=== PATIENT | male | born 1955 | race Caucasian/White ===

== ENCOUNTER 2017-06-15 21:53 | Inpatient (IN) | payer MEDICARE ==
[~2017-06-15] VITALS: Ht 177.8 cm; Wt 92.6 kg
[~2017-06-15 21:53] MED LIST: ARTIFICIAL TEAR15 M1 OP; ATIVAN1 MG PO; ATIVAN2 MG PO; ATIVAN2 MG/ML IM; AZITHROMYCIN250 MG PO; CLARITIN10 MG PO; COGENTIN0.5 MG PO; DEPAKOTE125 MG PO; DEPLIN-ALGAL O1 EAC1 PO; DOCUSATE100 MG PO; DUONEB 3 MG/3 ML3 M1 INH; EXELON4.6 MG/24 TD; MOBIC15 MG PO; NEUDEXT PO; NUED1CAP PO; NUEDEXTA 20-10; PREDNISONE10 MG PO; PRILOSEC20 MG PO; SENNA-GEN8.6 MG PO; SEROQUEL100 MG PO; SEROQUEL50 MG PO; TEGRETOL200 MG PO; TYLENOL650 M1 PO; VITAMIN D32000 IU PO; XIFAXAN550 MG PO
[2017-06-15 21:57] VITALS: BP 119/82
[2017-06-15] MEDS ORDERED: TRAZODONE50 MG PO (22:10)
[2017-06-15] MEDS ORDERED: DEPAKOTE SPRIN125 MG PO ×2 (22:12→22:14)
[2017-06-15] MEDS ORDERED: BENZTROPINE ME0.5 MG PO (22:13)
[2017-06-15] MEDS ORDERED: NUED1CAP PO (22:15)
[2017-06-15] MEDS ORDERED: CARBAMAZEPINE200 M2 PO (22:15)
[2017-06-15] MEDS ORDERED: ARTIFICIAL TEA1 EACH OP (22:16)
[2017-06-15] MEDS ORDERED: ATIVAN0.5 MG PO (22:16)
[2017-06-15] MEDS ORDERED: LACTULOSE20 GM/30 M PO (22:17)
[2017-06-15] MEDS ORDERED: VITAMIN D-3 PO (22:18)
[2017-06-15] MEDS ORDERED: LORAZEPAM2 MG PO (22:18)
[2017-06-15] MEDS ORDERED: DEPLIN-ALGAL O1 EAC1 PO (22:19)
[2017-06-15] MEDS ORDERED: XIFAXAN550 MG PO (22:19)
[2017-06-15] MEDS ORDERED: MOBIC15 MG PO (22:20)
[2017-06-15] MEDS ORDERED: TYLENOL325 M1 PO (22:20)
[2017-06-15] MEDS ORDERED: CLARITIN10 MG PO (22:21)
[2017-06-15] MEDS ORDERED: DOCU-LIQUI150 MG/15 PO (22:21)
[2017-06-15 22:45] LABS: BASO % 0.4 % (0.0-1.0); EOS # 0.1 10*3/uL (0.0-0.4); EOS % 0.9 % (1.0-4.0); HEMATOCRIT 39.8 % (42.0-52.0); HEMOGLOBIN 13.9 g/dl (14.0-18.0); IG # 0.1 10*3/uL (0.0-0.1); LYMPH # 1.5 10*3/uL (1.3-4.4); LYMPH % 27.5 % (27.0-41.0); MEAN CELL VOLUME 89.6 fl (80.0-94.0); MEAN CORPUSCULAR HGB 31.3 pg (27.0-31.0); MEAN CORPUSCULAR HGB CONC 34.9 g/dl (33.0-37.0); MEAN PLATELET VOLUME 9.6 fl (9.6-12.3); MONO # 0.5 10*3/uL (0.1-1.0); MONO % 9.3 % (3.0-9.0); NEUT # 3.3 10*3/uL (2.3-7.9); NEUT % 60.6 % (47.0-73.0); PLATELET COUNT AUTOMATED 163 10*3/uL (130-400); RED BLOOD COUNT 4.44 10*6/uL (4.50-5.90); RED CELL DISTRI WIDTH 12.4 % (0-14.5); WHITE BLOOD COUNT 5.4 10*3/uL (4.8-10.8)
[2017-06-15 22:58] LABS: PROTHROMBIN TIME 10.8 SECONDS (9.0-12.4)
[2017-06-15 23:02] LABS: ALBUMIN 3.2 gm/dl (3.1-4.5); ALKALINE PHOSPHATASE 43 U/L (45-117); BILIRUBIN, TOTAL 0.2 mg/dl (0.2-1.0); BUN 13 mg/dl (7-24); CARBON DIOXIDE 24 mmol/L (21-32); CHLORIDE 98 mmol/L (98-107); EST GLOM FILT AFRICAN AMERICAN > 60 ml/min; GLUCOSE 140 mg/dL (65-99); MAGNESIUM 1.9 mg/dL (1.5-2.1); POTASSIUM 4.1 mmol/L (3.5-5.1); SGOT/AST 27 IU/L (3-35); SGPT/ALT 42 U/L (12-78); SODIUM 133 mmol/L (136-145); TOTAL PROTEIN 6.6 gm/dL (6.4-8.2)
[2017-06-15 23:11] LABS: TROPONIN I < 0.015 ng/ml (<0.045)
[2017-06-16 00:43] LABS: LA>2 REFLEX 2 HR DRAW NOW
[2017-06-16 03:30] VITALS: BP 100/56
[2017-06-16 06:36] LABS: BASO % 0.3 % (0.0-1.0); EOS % 0.6 % (1.0-4.0); HEMATOCRIT 36.7 % (42.0-52.0); HEMOGLOBIN 12.6 g/dl (14.0-18.0); IG # 0.1 10*3/uL (0.0-0.1); LYMPH # 1.3 10*3/uL (1.3-4.4); LYMPH % 19.7 % (27.0-41.0); MEAN CELL VOLUME 92.2 fl (80.0-94.0); MEAN CORPUSCULAR HGB 31.7 pg (27.0-31.0); MEAN CORPUSCULAR HGB CONC 34.3 g/dl (33.0-37.0); MEAN PLATELET VOLUME 9.9 fl (9.6-12.3); MONO # 0.6 10*3/uL (0.1-1.0); MONO % 9.5 % (3.0-9.0); NEUT # 4.7 10*3/uL (2.3-7.9); PLATELET COUNT AUTOMATED 133 10*3/uL (130-400); RED BLOOD COUNT 3.98 10*6/uL (4.50-5.90); RED CELL DISTRI WIDTH 12.5 % (0-14.5); WHITE BLOOD COUNT 6.8 10*3/uL (4.8-10.8)
[2017-06-16 06:55] LABS: FOLIC ACID > 24.00 ng/mL (>5.38)
[2017-06-16 07:02] LABS: BUN 9 mg/dl (7-24); CARBON DIOXIDE 25 mmol/L (21-32); CHLORIDE 103 mmol/L (98-107); EST GLOM FILT AFRICAN AMERICAN > 60 ml/min; FREE T4 0.77 ng/dl (0.76-1.46); GLUCOSE 92 mg/dL (65-99); PHOSPHOROUS 3.2 mg/dL (2.5-4.9); POTASSIUM 3.9 mmol/L (3.5-5.1); SODIUM 136 mmol/L (136-145)
[2017-06-16 08:00] VITALS: BP 150/87
[2017-06-16 10:18] LABS: BILIRUBIN NEGATIVE (NEGATIVE); BLOOD NEGATIVE (NEGATIVE); CLARITY SL CLOUDY (CLEAR); COLOR YELLOW (YELLOW); GLUCOSE NEGATIVE (NEGATIVE); KETONE NEGATIVE (NEGATIVE); LEUKO ESTERASE 3+ (NEGATIVE); NITRITE POSITIVE (NEGATIVE); PH 6.5 (5.0-9.0); PROTEIN NEGATIVE (NEGATIVE); SPECIFIC GRAVITY <= 1.005 (1.005-1.030)
[2017-06-16 10:35] LABS: WBC TNTC wbc/hpf (0-5)
[2017-06-16 10:36] LABS: BACTERIA 1+; CALCIUM OXALATE CRYSTALS TRACE; URINE REFLEX COMMENT YES (NO)
[2017-06-16 12:00] VITALS: BP 108/74
[2017-06-16 16:00] VITALS: BP 127/88
[2017-06-16 20:00] VITALS: BP 124/69
[2017-06-17] VITALS: BP 128/88
[2017-06-17 05:54] LABS: BASO % 0.4 % (0.0-1.0); EOS % 0.8 % (1.0-4.0); HEMATOCRIT 35.5 % (42.0-52.0); HEMOGLOBIN 12.1 g/dl (14.0-18.0); IG # 0.1 10*3/uL (0.0-0.1); LYMPH # 1.6 10*3/uL (1.3-4.4); LYMPH % 31.3 % (27.0-41.0); MEAN CELL VOLUME 93.2 fl (80.0-94.0); MEAN CORPUSCULAR HGB 31.8 pg (27.0-31.0); MEAN CORPUSCULAR HGB CONC 34.1 g/dl (33.0-37.0); MEAN PLATELET VOLUME 9.9 fl (9.6-12.3); MONO # 0.6 10*3/uL (0.1-1.0); MONO % 11.8 % (3.0-9.0); NEUT # 2.7 10*3/uL (2.3-7.9); NEUT % 54.5 % (47.0-73.0); PLATELET COUNT AUTOMATED 151 10*3/uL (130-400); RED BLOOD COUNT 3.81 10*6/uL (4.50-5.90); RED CELL DISTRI WIDTH 12.7 % (0-14.5)
[2017-06-17 05:55] LABS: BUN 5 mg/dl (7-24); CARBON DIOXIDE 25 mmol/L (21-32); CHLORIDE 107 mmol/L (98-107); EST GLOM FILT AFRICAN AMERICAN > 60 ml/min; GLUCOSE 96 mg/dL (65-99); POTASSIUM 3.7 mmol/L (3.5-5.1); SODIUM 140 mmol/L (136-145)
[2017-06-17 08:00] VITALS: BP 146/74
[2017-06-17] MEDS ORDERED: LORAZEPAM2 MG PO (10:45)
[2017-06-17] MEDS ORDERED: ATIVAN0.5 MG PO (10:45)
[2017-06-17] MEDS ORDERED: DUONEB 3 MG/3 ML3 M1 NEB (10:45)
[2017-06-17 12:00] VITALS: BP 140/77
== END 2017-06-17 16:02 | DRG 193 ==
LOC: ED 21:53 → 4E 06-16 02:10 → EDHOLD 06-16 02:10 → 4E 06-16 02:13
PROVIDERS: Emergency Medicine Emergency Medical Services; Family Medicine; Internal Medicine
DX: J18.9 Pneumonia, unspecified organism (principal); G93.41 Metabolic encephalopathy; G91.9 Hydrocephalus, unspecified; E87.2 Acidosis; J45.901 Unspecified asthma with (acute) exacerbation; F02.81 Dementia in other diseases classified elsewhere, unspecified severity, with behavioral disturbance; G82.20 Paraplegia, unspecified; E87.1 Hypo-osmolality and hyponatremia; N39.0 Urinary tract infection, site not specified; R47.01 Aphasia; D64.9 Anemia, unspecified; R73.9 Hyperglycemia, unspecified; F41.9 Anxiety disorder, unspecified; F32.9 Major depressive disorder, single episode, unspecified; G20 Parkinson's disease; R56.9 Unspecified convulsions; Z79.1 Long term (current) use of non-steroidal anti-inflammatories (NSAID); S06.9X9S Unspecified intracranial injury with loss of consciousness of unspecified duration, sequela; Z79.899 Other long term (current) drug therapy; T17.298A Other foreign object in pharynx causing other injury, initial encounter; X58.XXXA Exposure to other specified factors, initial encounter; Y93.89 Activity, other specified; Y92.89 Other specified places as the place of occurrence of the external cause; Y99.8 Other external cause status

== ENCOUNTER 2018-02-19 16:17 | Emergency (ER) | payer MEDICARE ==
[~2018-02-19] VITALS: Wt 81.6 kg
[~2018-02-19 16:17] MED LIST changes: +ARTIFICIAL TEA1 EACH OP; +ATIVAN0.5 MG PO; +BENZTROPINE ME0.5 MG PO; +CARBAMAZEPINE200 M2 PO; +DEPAKOTE SPRIN125 MG PO; +DOCU-LIQUI150 MG/15 PO; +DUONEB 3 MG/3 ML3 M1 NEB; +LACTULOSE20 GM/30 M PO; +LORAZEPAM2 MG PO; +TRAZODONE50 MG PO; +TYLENOL325 M1 PO; +VITAMIN D-3 PO
[2018-02-19 17:32] LABS: BASO % 0.2 % (0.0-1.0); EOS # 0.1 10*3/uL (0.0-0.4); HEMATOCRIT 40.8 % (42.0-52.0); HEMOGLOBIN 13.6 g/dl (14.0-18.0); LYMPH # 1.9 10*3/uL (1.3-4.4); LYMPH % 39.2 % (27.0-41.0); MEAN CELL VOLUME 96.2 fl (80.0-94.0); MEAN CORPUSCULAR HGB 32.1 pg (27.0-31.0); MEAN CORPUSCULAR HGB CONC 33.3 g/dl (33.0-37.0); MEAN PLATELET VOLUME 10.8 fl (9.6-12.3); MONO # 0.4 10*3/uL (0.1-1.0); MONO % 8.5 % (3.0-9.0); NEUT # 2.4 10*3/uL (2.3-7.9); NEUT % 48.9 % (47.0-73.0); PLATELET COUNT AUTOMATED 120 10*3/uL (130-400); RED BLOOD COUNT 4.24 10*6/uL (4.50-5.90); RED CELL DISTRI WIDTH 12.8 % (0-14.5); WHITE BLOOD COUNT 4.9 10*3/uL (4.8-10.8)
[2018-02-19 17:48] LABS: ALBUMIN 2.8 gm/dl (3.1-4.5); ALKALINE PHOSPHATASE 38 U/L (45-117); BUN 19 mg/dl (7-24); CHLORIDE 103 mmol/L (98-107); POTASSIUM 4.1 mmol/L (3.5-5.1); SGOT/AST 21 IU/L (3-35); SGPT/ALT 34 U/L (12-78); SODIUM 138 mmol/L (136-145); TOTAL PROTEIN 5.7 gm/dL (6.4-8.2)
[2018-02-19 17:59] LABS: BILIRUBIN 1+ (NEGATIVE); BLOOD NEGATIVE (NEGATIVE); CLARITY CLOUDY (CLEAR); COLOR BROWN (YELLOW); GLUCOSE NEGATIVE (NEGATIVE); KETONE 1+ (NEGATIVE); LEUKO ESTERASE 2+ (NEGATIVE); NITRITE POSITIVE (NEGATIVE); SPECIFIC GRAVITY 1.015 (1.005-1.030)
[2018-02-19 18:06] LABS: BACTERIA 2+; TRIP PHOS CRYSTALS 1+; WBC TNTC wbc/hpf (0-5)
== END 2018-02-19 18:03 | disposition home or self-care (01) ==
LOC: ED 16:17
PROVIDERS: Emergency Medicine
DX: Z00.00 Encounter for general adult medical examination without abnormal findings (principal); J45.909 Unspecified asthma, uncomplicated; Z98.890 Other specified postprocedural states; Z79.899 Other long term (current) drug therapy

== ENCOUNTER → 2018-03-08 | Outpatient (CLI) | payer MEDICARE ==
--- NOTE | ~2018-03-08 | SLPPN ---
[place], [place] DIE REPAIR PROGRESS NOTE NAME: CHRISTINE NÚÑEZ UNIT #: [id number] ROOM: DOCTOR: MERRY LLOYD MD,SHITAL Speech Language Pathology Treatment Note Page 1 1 of Patient Name: CHRISTINE NÚÑEZ Date: 03/08/2018 04:01 PM : 1955 SOC Date: 03/08/2018 [facility]: [facility] Provider #: [id number] Treating Clinician: LENO De La Torre-DIE REPAIR Referring Physician: SHITAL LLOYD Onset Date Description Code Primary Diagnosis: 03/08/2018 A0000 NO DIAGNOSIS SENT TO THE [facility] Time In: 01:30 PM Time Out: 02:30 PM DIE REPAIR Interventions and CPT Codes Consisted of: CPT Code Modifiers Minutes Units MOTION FLUOROSCOPY/SWALLOW 76858 60 1 Total Minutes: 60 Total Timed Minutes: 0 Total Untimed Minutes: 60 Total Units: 1 Total Timed Units: 0 Total Untimed Units: 1 03/08/2018 4:02:17 PM JUAN PABLO De La Torre Date/Time State License #: [id number] CM:ELLEN 1604 1604 [facility]Y [facility]
--- NOTE | ~2018-03-08 | SLPPOC ---
[place], [place] VENDOR RELATIONSHIP MANAGER PLAN OF CARE NAME: CHRISTINE NÚÑEZ UNIT #: [id number] ROOM: DOCTOR: SHITAL RODAS FACP, MD Speech Language Pathology Plan of Care Page 1 1 (Initial Evaluation) of Patient Name: CHRISTINE NÚÑEZ Date: 03/08/2018 04:00 PM : 1955 SOC Date: 03/08/2018 [facility]: [facility] Provider #: [id number] Treating Clinician: LENO De La Torre-VENDOR RELATIONSHIP MANAGER Referring Physician: SHITAL LLOYD Medicare #: [id number] Visits From SOC: Onset Date Description Code Primary Diagnosis: 03/08/2018 A0000 NO DIAGNOSIS SENT TO THE [facility] Subjective Comments: Initial evaluation created to initiate the electronic medical record. Please see [employer] for details. Initial Level Goals Functional Limitation Reporting Swallowing G8996 - Swallowing functional limitation, current status at therapy episode outset and at reporting intervals Current Status: CJ - At least 20 percent but less than 40 percent impaired, limited or restricted G8997 - Swallowing functional limitation, projected goal status, at therapy episode outset, at reporting intervals, and at discharge or to end reporting Goal Status: CJ - At least 20 percent but less than 40 percent impaired, limited or restricted G8998 - Swallowing functional limitation, discharge status, at discharge from therapy or to end reporting Discharge Status: CJ - At least 20 percent but less than 40 percent impaired, limited or restricted 03/08/2018 4:01:26 PM SHITAL LLOYD Date/Time JUAN PABLO De La Torre Date I certify the need for these services furnished under this plan of treatment while under my care. State License #: [id number] CM:SLPPO 1604 1604 IS THERAPY [facility]
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
--- NOTE | ~2018-03-08 | SLPIE ---
[place], [place] ER TECH INITIAL EVALUATION NAME: CHRISTINE NÚÑEZ UNIT #: [id number] ROOM: DOCTOR: SHITAL RODAS FACP, MD Speech Language Pathology Initial Evaluation Page 1 1 of Patient Name: CHRISTINE NÚÑEZ Date: 03/08/2018 04:00 PM : 1955 SOC Date: 03/08/2018 [facility]: [facility] Provider #: [id number] Treating Clinician: LENO De La Torre-ER TECH Referring Physician: SHITAL LLOYD Patient Information Address: [address] [place] [address] Physician: SHITAL LLOYD Physician #: City, [facility], Zip: [place], [place] [address] Occupation: Unknown # of Approved Visits: 0 Gender: Male [employer]: TAMIKO NÚÑEZ Medicare #: [id number] Rehabilitation Information / History Onset Date Code Description Primary Diagnosis: 03/08/2018 A0000 NO DIAGNOSIS SENT TO THE [facility] Subjective Comments: Initial evaluation created to initiate the electronic medical record. Please see [employer] for details. Rehabilitation Information / History Clinical Findings Functional Goals Functional Limitation Reporting Swallowing G8996 - Swallowing functional limitation, current status at therapy episode outset and at reporting intervals Current Status: CJ - At least 20 percent but less than 40 percent impaired, limited or restricted G8997 - Swallowing functional limitation, projected goal status, at therapy episode outset, at reporting intervals, and at discharge or to end reporting Goal Status: CJ - At least 20 percent but less than 40 percent impaired, limited or restricted G8998 - Swallowing functional limitation, discharge status, at discharge from therapy or to end reporting Discharge Status: CJ - At least 20 percent but less than 40 percent impaired, limited or restricted 03/08/2018 4:01:26 PM LENO De La Torre-ER TECH Date/Time [place], [place] ER TECH INITIAL EVALUATION NAME: CHRISTINE NÚÑEZ UNIT #: [id number] ROOM: DOCTOR: SHITAL RODAS FACP, MD [facility] License #: [id number] CM:MICHELLE 1604 1604 IS THERAPY [facility]
== END | disposition home or self-care (01) ==
LOC: RAD/SH 13:19
DX: R13.10 Dysphagia, unspecified (principal); K21.9 Gastro-esophageal reflux disease without esophagitis

== ENCOUNTER 2018-04-03 17:30 | Inpatient (IN) | payer MEDICARE ==
[~2018-04-03] VITALS: Ht 177.8 cm; Wt 84.5 kg
[~2018-04-03 17:30] MED LIST changes: -CARBAMAZEPINE200 M2 PO; -DOCU-LIQUI150 MG/15 PO; +DOCUSATE S100 MG/10 PO
[2018-04-03 17:35] VITALS: BP 109/78
[2018-04-03 18:59] LABS: BASO % 0.1 % (0.0-1.0); EOS % 0.2 % (1.0-4.0); HEMATOCRIT 43.6 % (42.0-52.0); HEMOGLOBIN 14.5 g/dl (14.0-18.0); LYMPH # 2.5 10*3/uL (1.3-4.4); MEAN CELL VOLUME 96.9 fl (80.0-94.0); MEAN CORPUSCULAR HGB 32.2 pg (27.0-31.0); MEAN CORPUSCULAR HGB CONC 33.3 g/dl (33.0-37.0); MEAN PLATELET VOLUME 12.2 fl (9.6-12.3); MONO # 1.2 10*3/uL (0.1-1.0); MONO % 7.1 % (3.0-9.0); NEUT # 13.7 10*3/uL (2.3-7.9); NEUT % 78.1 % (47.0-73.0); PLATELET COUNT AUTOMATED 76 10*3/uL (130-400); RED CELL DISTRI WIDTH 12.6 % (0-14.5); WHITE BLOOD COUNT 17.5 10*3/uL (4.8-10.8)
[2018-04-03 19:09] LABS: ACT PARTIAL THROMBO TIME 28.3 SECONDS (20.8-31.5); INTERNATIONAL NORM RATIO 1.1 (2.0-3.5)
[2018-04-03 19:18] LABS: ALBUMIN 2.4 gm/dl (3.1-4.5); ALKALINE PHOSPHATASE 30 U/L (45-117); BUN 25 mg/dl (7-24); CHLORIDE 112 mmol/L (98-107); CREATININE 0.57 mg/dL (0.70-1.30); LIPASE 90 U/L (73-393); POTASSIUM 3.5 mmol/L (3.5-5.1); SGOT/AST 21 IU/L (3-35); SGPT/ALT 31 U/L (12-78); SODIUM 146 mmol/L (136-145); TOTAL PROTEIN 5.8 gm/dL (6.4-8.2); TROPONIN I 0.019 ng/ml (<0.045)
[2018-04-03 20:32] LABS: BILIRUBIN NEGATIVE (NEGATIVE); BLOOD TRACE-INTACT (NEGATIVE); CLARITY SL CLOUDY (CLEAR); COLOR YELLOW (YELLOW); GLUCOSE NEGATIVE (NEGATIVE); KETONE TRACE (NEGATIVE); LEUKO ESTERASE TRACE (NEGATIVE); NITRITE NEGATIVE (NEGATIVE); SPECIFIC GRAVITY >= 1.030 (1.005-1.030); UROBILINOGEN 0.2 E.U./dl (0.2-1.0)
[2018-04-03 20:44] LABS: BACTERIA 1+; MUCOUS 2+
[2018-04-03 20:45] LABS: RBC 21-30 rbc/hpf (0-2); WBC 41-50 wbc/hpf (0-5)
[2018-04-03 21:00] VITALS: BP 111/80
[2018-04-03 21:25] VITALS: BP 109/78
[2018-04-03] MEDS ORDERED: DUONEB 3 MG/3 ML3 M1 INH ×2 (21:38→21:45)
[2018-04-03] MEDS ORDERED: DOXYCYCLINE50 M1 PO (21:40)
[2018-04-03] MEDS ORDERED: ATIVAN0.5 MG PO ×2 (21:41→21:42)
[2018-04-03] MEDS ORDERED: NUED1CAP PO (21:50)
[2018-04-03] MEDS ORDERED: VITAMIN D310000 UNI1 PO (22:11)
[2018-04-04] VITALS: BP 100/68
[2018-04-04 07:03] LABS: BASO % 0.1 % (0.0-1.0); EOS # 0.1 10*3/uL (0.0-0.4); EOS % 0.5 % (1.0-4.0); HEMATOCRIT 42.6 % (42.0-52.0); HEMOGLOBIN 13.8 g/dl (14.0-18.0); LYMPH # 1.9 10*3/uL (1.3-4.4); LYMPH % 12.9 % (27.0-41.0); MEAN CELL VOLUME 97.5 fl (80.0-94.0); MEAN CORPUSCULAR HGB 31.6 pg (27.0-31.0); MEAN CORPUSCULAR HGB CONC 32.4 g/dl (33.0-37.0); MEAN PLATELET VOLUME 12.1 fl (9.6-12.3); MONO # 1.1 10*3/uL (0.1-1.0); MONO % 7.3 % (3.0-9.0); NEUT # 11.5 10*3/uL (2.3-7.9); NEUT % 78.7 % (47.0-73.0); PLATELET COUNT AUTOMATED 70 10*3/uL (130-400); RED BLOOD COUNT 4.37 10*6/uL (4.50-5.90); RED CELL DISTRI WIDTH 12.5 % (0-14.5); WHITE BLOOD COUNT 14.6 10*3/uL (4.8-10.8)
[2018-04-04 07:11] LABS: ALBUMIN 2.6 gm/dl (3.1-4.5); BUN 26 mg/dl (7-24); CHLORIDE 110 mmol/L (98-107); POTASSIUM 3.7 mmol/L (3.5-5.1); SGPT/ALT 25 U/L (12-78); SODIUM 146 mmol/L (136-145)
[2018-04-04 07:20] LABS: ALKALINE PHOSPHATASE 33 U/L (45-117); CHOLESTEROL 135 mg/dL (<200); CREATININE 0.62 mg/dL (0.70-1.30); FREE T4 0.73 ng/dl (0.76-1.46); HDL CHOLESTEROL 32 mg/dl (40-60); LDL CHOLESTEROL 85 mg/dL (9-159); PHOSPHOROUS 2.5 mg/dL (2.5-4.9); SGOT/AST 22 IU/L (3-35); TOTAL PROTEIN 5.9 gm/dL (6.4-8.2); TRIGLYCERIDES 92 mg/dl (<150); VLDL CHOLESTEROL 18 mg/dL (6-40)
[2018-04-04 08:00] VITALS: BP 98/78
[2018-04-04 08:04] LABS: VITAMIN D, 25-HYDROXY 63.8 ng/mL (30-100)
[2018-04-04 12:00] VITALS: BP 107/80
[2018-04-04 16:00] VITALS: BP 99/73
[2018-04-04 20:00] VITALS: BP 105/32
[2018-04-05 00:26] VITALS: BP 102/65
[2018-04-05 07:39] LABS: BASO % 0.1 % (0.0-1.0); EOS # 0.2 10*3/uL (0.0-0.4); EOS % 2.7 % (1.0-4.0); HEMATOCRIT 39.7 % (42.0-52.0); HEMOGLOBIN 13.2 g/dl (14.0-18.0); LYMPH # 1.6 10*3/uL (1.3-4.4); LYMPH % 18.5 % (27.0-41.0); MEAN CELL VOLUME 95.7 fl (80.0-94.0); MEAN CORPUSCULAR HGB 31.8 pg (27.0-31.0); MEAN CORPUSCULAR HGB CONC 33.2 g/dl (33.0-37.0); MEAN PLATELET VOLUME 12.9 fl (9.6-12.3); MONO # 0.6 10*3/uL (0.1-1.0); MONO % 6.8 % (3.0-9.0); NEUT # 6.3 10*3/uL (2.3-7.9); NEUT % 70.7 % (47.0-73.0); PLATELET COUNT AUTOMATED 64 10*3/uL (130-400); RED BLOOD COUNT 4.15 10*6/uL (4.50-5.90); RED CELL DISTRI WIDTH 12.4 % (0-14.5); WHITE BLOOD COUNT 8.9 10*3/uL (4.8-10.8)
[2018-04-05 08:00] VITALS: BP 109/73
[2018-04-05 08:07] LABS: BUN 28 mg/dl (7-24); CHLORIDE 110 mmol/L (98-107); CREATININE 0.39 mg/dL (0.70-1.30)
[2018-04-05 08:10] LABS: POTASSIUM 4.7 mmol/L (3.5-5.1); SODIUM 146 mmol/L (136-145)
[2018-04-05 12:00] VITALS: BP 112/75
[2018-04-05 16:00] VITALS: BP 138/70
[2018-04-05 20:00] VITALS: BP 109/65
[2018-04-06] VITALS: BP 125/84
[2018-04-06 07:53] LABS: BASO % 0.3 % (0.0-1.0); EOS # 0.2 10*3/uL (0.0-0.4); EOS % 3.6 % (1.0-4.0); HEMATOCRIT 38.3 % (42.0-52.0); HEMOGLOBIN 12.5 g/dl (14.0-18.0); LYMPH # 1.3 10*3/uL (1.3-4.4); LYMPH % 22.3 % (27.0-41.0); MEAN CELL VOLUME 97.5 fl (80.0-94.0); MEAN CORPUSCULAR HGB 31.8 pg (27.0-31.0); MEAN CORPUSCULAR HGB CONC 32.6 g/dl (33.0-37.0); MEAN PLATELET VOLUME 12.8 fl (9.6-12.3); MONO # 0.6 10*3/uL (0.1-1.0); MONO % 9.4 % (3.0-9.0); NEUT # 3.7 10*3/uL (2.3-7.9); NEUT % 62.9 % (47.0-73.0); PLATELET COUNT AUTOMATED 79 10*3/uL (130-400); RED BLOOD COUNT 3.93 10*6/uL (4.50-5.90); RED CELL DISTRI WIDTH 12.5 % (0-14.5); WHITE BLOOD COUNT 5.9 10*3/uL (4.8-10.8)
[2018-04-06 08:00] VITALS: BP 113/69
[2018-04-06 08:17] LABS: BUN 26 mg/dl (7-24); CHLORIDE 110 mmol/L (98-107); CREATININE 0.44 mg/dL (0.70-1.30); POTASSIUM 4.1 mmol/L (3.5-5.1); SODIUM 148 mmol/L (136-145)
[2018-04-06 12:00] VITALS: BP 110/75
[2018-04-06] MEDS ORDERED: BACTRIM 400-801 EACH PO (13:28)
== END 2018-04-06 16:33 | disposition other institution (70) | DRG 871 ==
LOC: ED 17:30 → EDHOLD 19:57 → 5E 19:57
PROVIDERS: Family Medicine; Internal Medicine; Internal Medicine Hospice and Palliative Medicine; Physician Assistant
DX: A41.9 Sepsis, unspecified organism (principal); G93.41 Metabolic encephalopathy; E43 Unspecified severe protein-calorie malnutrition; G91.9 Hydrocephalus, unspecified; E87.0 Hyperosmolality and hypernatremia; E87.8 Other disorders of electrolyte and fluid balance, not elsewhere classified; N39.0 Urinary tract infection, site not specified; R47.01 Aphasia; R65.20 Severe sepsis without septic shock; G20 Parkinson's disease; D75.89 Other specified diseases of blood and blood-forming organs; S06.9X0S Unspecified intracranial injury without loss of consciousness, sequela; R56.9 Unspecified convulsions; F03.90 Unspecified dementia, unspecified severity, without behavioral disturbance, psychotic disturbance, mood disturbance, and anxiety; F32.9 Major depressive disorder, single episode, unspecified; F41.1 Generalized anxiety disorder; G47.00 Insomnia, unspecified; J30.2 Other seasonal allergic rhinitis; E55.9 Vitamin D deficiency, unspecified; D64.9 Anemia, unspecified; E83.41 Hypermagnesemia; B96.4 Proteus (mirabilis) (morganii) as the cause of diseases classified elsewhere; X58.XXXS Exposure to other specified factors, sequela; Z79.899 Other long term (current) drug therapy; Z98.2 Presence of cerebrospinal fluid drainage device; Z68.26 Body mass index [BMI] 26.0-26.9, adult

== ENCOUNTER 2018-04-17 01:56 | Inpatient (IN) | payer MEDICARE ==
[~2018-04-17] VITALS: Ht 187.9 cm; Wt 87.3 kg
[2018-04-17] VITALS (7 sets, daily range): BP systolic 98–124; BP diastolic 61–70
--- NOTE | ~2018-04-17 | PR ---
[place], [place] PROGRESS NOTE NAME: CHRISTINE NÚÑEZ UNIT #: [id number] ROOM: 511 DOCTOR: RSAHMI MAC MD,ROSA BIRTHDATE: [birth year] DOS: 04/29/2018 PULMONARY PROGRESS NOTE SUBJECTIVE: He has been noted comfortable at this time without any acute distress. The patient has been noted without any acute changes in the overall medical management or symptoms. The patient noted nonverbal. He has a PEG tube in place, which has been used for feeding as well. OBJECTIVE: VITAL SIGNS: For the patient which has been recorded shows a normal temperature, respiratory rate 18, heart rate 99, blood pressure 133/81. Pulse oxygen saturation of the patient noted on room air 92% saturation. HEENT: Shows head was atraumatic. Eyes nonicterus with obesity. CARDIOVASCULAR: S1, S2 heard. LUNGS: Clear. ABDOMEN: Soft, nontender and obese. EXTREMITIES: Without any acute changes. LABORATORY DATA: BMP today noted sodium was better as 148. Potassium was normal. IMPRESSION: 1. Resolving acute aspiration pneumonia. 2. Chronic traumatic brain injury with changes in mental status and others. PLAN OF MANAGEMENT: Decrease Solu-Medrol 40 mg daily. Continuation of bronchodilators, oxygen supplementation, therapy and plan of care. Usual treatment. Additional changes in the treatment to be done for the patient based on progression of the illness. The Augmentin will be completed today as last dose, no further need of antibiotics. ROSA CARABALLO MD CM:PNTRANS [id number] ROSA MAC MD 04/29/18 2306 interface
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
--- NOTE | ~2018-04-17 | PR ---
[place], [place] PROGRESS NOTE NAME: CHRISTINE NÚÑEZ UNIT #: [id number] ROOM: 511 DOCTOR: ROSA CHAPPELL MD BIRTHDATE: [birth year] DOS: 04/28/2018 SUBJECTIVE: The patient has been noted comfortable at this time without any acute distress. He has been noted without any hemodynamic instability. The patient noted nonverbal. The review of systems could not be performed. The patient is nonverbal. OBJECTIVE: VITAL SIGNS: Temperature 99.6 degree Fahrenheit, normal temperature recorded; respiratory rate 20; heart rate 95; blood pressure 121/75. Pulse oxygen saturation of the patient recorded as 96% on room air. HEENT: Examination shows head was atraumatic. Eyes nonicterus. NECK: Supple. CARDIOVASCULAR: S1, S2 is audible. LUNGS: Noted with mild expiratory wheezing ____ as compared to previous examination. ABDOMEN: Soft and obese. EXTREMITIES: Without any acute change. CENTRAL NERVOUS SYSTEM: Chronic traumatic brain injury for the patient was noted with changes in mental status. The patient is nonverbal. VISIBLE SKIN: No lesions or rashes. MUSCULOSKELETAL SYMPTOMS: Without any acute major contractures. LABORATORY DATA: CMP: Sodium was noted elevated again 150. CBC of the patient was noted with platelet count of 97,000, hemoglobin 12, normal WBC count. IMPRESSION: 1. The patient with expiratory wheezing noted at present time with previous treatment for the acute pneumonia. 2. Recurrent hypernatremia. PLAN OF MANAGEMENT: No changes in the plan of care for the patient at this time. Continue bronchodilators given every 4 hours. Solu-Medrol 40 mg b.i.d. was also started for the patient to help improve the bronchospasm. Other supportive therapy, plan of management and care plan. Usual treatment, other supportive treatment, therapies and care. Additional treatment changes will be made based on progression of the illness. [place], [place] PROGRESS NOTE NAME: CHRISTINE NÚÑEZ UNIT #: [id number] ROOM: 511 DOCTOR: ROSA CHAPPELL MD BIRTHDATE: [birth year] ROSA CARABALLO MD CM:PNTRANS 1106 1327 ROSA MAC MD 04/28/18 1326 interface
--- NOTE | ~2018-04-17 | PROC NOTE ---
[place], [place] PROCEDURE NOTE NAME: CHRISTINE NÚÑEZ UNIT #: [id number] ROOM: 511 DOCTOR: RASHMI MAC MD,ROSA BIRTHDATE: [birth year] DOS: 04/21/2018 PREOPERATIVE DIAGNOSES: The patient with acute pneumonia from aspiration with cough, chest congestion. POSTOPERATIVE DIAGNOSES: The patient with acute pneumonia from aspiration with cough, chest congestion. Some evidence of aspiration with some crusty secretion, which has been noted orange in color and/or food particles present in the left main stem bronchus, which was suctioned out. PROCEDURE DESCRIPTION: Informed consent obtained from the patient's mother. The patient was brought to the OR and placed in supine position. Conscious sedation administered by the Anesthesia Department. After achieving proper sedation, airway introduced into the mouth. Bronchoscope advanced to the airway into laryngeal area. Epiglottis and vocal were seen. Vocal cords moving symmetrically with movements. The bronchoscope advanced to vocal cords into the tracheal lumen. The tracheal lumen was noted with moderate amount of purulent secretions which was suctioned out. Some crusty secretion, which was present was suctioned out as well. Shannan noted sharp. Right upper, right middle, right lower, left upper, lingular lobe bronchi were noted moderate, copious amount of purulent secretion in endobronchial tree bilaterally, greater on the left than the right side. Some crusty secretion and food particle was also noted in the left main stem bronchus, which was suctioned out as well. Procedure well tolerated by the patient without any difficulty. Postoperative findings were discussed with the patient's mother in detail in the recovery room. ROSA CARABALLO MD CM:PROCNOTE:PROCEDURE NOTE 1635 0031 ROSA MAC MD
--- NOTE | ~2018-04-17 | PR ---
[place], [place] PROGRESS NOTE NAME: CHRISTINE NÚÑEZ UNIT #: [id number] ROOM: 511 DOCTOR: ROSA CHAPPELL MD BIRTHDATE: [birth year] DOS: 04/20/2018 SUBJECTIVE: The patient was noted awake at this time without any acute distress. She has not been noted any acute complaints at this time. The patient has been noted awake with previous traumatic brain injury. Inability to verbally communicate. OBJECTIVE: VITAL SIGNS: For the patient shows a normal temperature, respiratory rate 20, heart rate 89, blood pressure 122/78 this morning. Pulse oxygen saturation on room air 94% saturation. HEENT: Head was atraumatic. Eyes, nonicterus. NECK: Supple. CARDIOVASCULAR: S1, S2 audible. LUNGS: Noted with generalized decreased breath sounds in the lungs bilaterally. ABDOMEN: Soft and nontender. Bowel sounds present. EXTREMITIES: Noted without any acute edema. LABORATORY DATA: CBC today, WBC count 5.9, hemoglobin 11, hematocrit 35.1, and platelet count was noted at 140,000. CMP of the patient this morning, BUN 12, creatinine 1.61. Sodium 146. Vancomycin trough level was elevated at 36. IMPRESSION: 1. The patient with acute right lower lobe pneumonia. 2. Acute kidney injury secondary to intravascular volume depletion. 3. Toxicity noted mild for the patient with elevated trough level of vancomycin at the present time. 4. Chronic traumatic brain injury for the patient as well. 5. Neurogenic dysphagia. 6. Mild thrombocytopenia. ADDENDUM MANAGEMENT PLAN: Discussion with the family members about the bronchoscopy to clear out the secretion in the endobronchial tree and accurate culture determination to minimize the antibiotic use and de-escalation. The patient's vancomycin has already been adjusted by the Pharmacy, it remains on hold until the level becomes therapeutic. Elevation of the creatinine was also noted that needs to be monitored. Obtain the consultation from the Nephrology Service in case of progressive worsening of the kidney functions. [place], [place] PROGRESS NOTE NAME: CHRISTINE NÚÑEZ UNIT #: [id number] ROOM: 511 DOCTOR: ROSA CHAPPELL MD BIRTHDATE: [birth year] ROSA CARABALLO MD CM:PNFRANCIS [id number] 1334 ROSA MAC MD 04/28/18 1516 interface
--- NOTE | ~2018-04-17 | PR ---
[place], [place] PROGRESS NOTE NAME: CHRISTINE NÚÑEZ UNIT #: [id number] ROOM: 511 DOCTOR: RASHMI MAC MD,ROSA BIRTHDATE: [birth year] DOS: 04/22/2018 SUBJECTIVE: He has been noted comfortable at this time after the bronchoscopy, noted resting on the bed without any acute distress. He has not been noted any ongoing acute hemodynamic instability. OBJECTIVE: VITAL SIGNS: For the patient, which were done this morning was noted as normal temperature, respiratory rate 20, heart rate 82, blood pressure 139/80. Pulse oxygen saturation on room air 95% saturation recorded. HEENT: Chronic moderate obesity. NECK: Supple. Head was atraumatic. CARDIOVASCULAR: S1, S2 is audible. LUNGS: Without any wheeze or crackles. ABDOMEN: Soft and obese. EXTREMITIES: Without any acute edema. LABORATORY DATA: Gram stain bronchial washing, many white blood cells, moderate epithelial cells, few budding yeast. Normal brett, but he patient was noted with moderate growth of yeast. Final results pending. BMP: BUN 9, creatinine 1.32, and sodium 150. IMPRESSION: Status post bronchoscopy. Acute aspiration pneumonia with pending cultures. Chronically reduction of the cough. The patient has been noted chest congestion on today's examination. Hypernatremia. PLAN OF TREATMENT: Continuation of the current antibiotics, bronchodilator. De-escalation of antibiotics as soon as the cultures are finalized, hopefully tomorrow would be done. Continue the medical management of hypernatremia by primary care attending. ROSA CARABALLO MD CM:PNTRANS 1504 1750 ROSA MAC MD 04/22/18 1749 interface
--- NOTE | ~2018-04-17 | PR ---
[place], [place] PROGRESS NOTE NAME: CHRISTINE NÚÑEZ UNIT #: [id number] ROOM: 511 DOCTOR: RASHMI MAC MD,ROSA BIRTHDATE: [birth year] DOS: 04/25/2018 SUBJECTIVE: The patient has been noted comfortable at this time, resting without any distress. He has electrolyte imbalance. The patient continued to be managed by the Nephrology Services which has been gradually improving mental status. The patient noted stable and noted any further episodes of chest congestion or cough. He has been continued on Augmentin, which has been given orally. OBJECTIVE: VITAL SIGNS: Temperature noted as normal, respiratory rate 20, heart rate 92, blood pressure 123/79. Pulse oxygen saturation on room air 94% saturation. HEENT: No new change. NECK: Supple. CARDIOVASCULAR: S1, S2 audible. LUNGS: Noted without any wheezing or crackles at the present time. ABDOMEN: Soft with moderate obesity. EXTREMITIES: Without any new changes. LABORATORY DATA: BMP today: BUN 5, creatinine 1.37, sodium 149. IMPRESSION: 1. Resolving acute pneumonia from aspiration progressively with gram-positive organisms suspected effectively and gradually. 2. Improving electrolyte imbalance as well. PLAN OF MANAGEMENT: Continuation of the current plan of management at this time without any changes with bronchodilators, oxygen supplementation and other care plan. Additional treatment changes to be made based on progression of the illness, once the patient noted stable from pulmonary standpoint for other medical problem, could be discharged home settings. ROSA CARABALLO MD CM:PNTRANS 1226 1442 ROSA MAC MD 04/25/18 1441 interface
--- NOTE | ~2018-04-17 | PR ---
[place], [place] PROGRESS NOTE NAME: CHRISTINE NÚÑEZ UNIT #: [id number] ROOM: 511 DOCTOR: ROSA CHAPPELL MD BIRTHDATE: [birth year] DOS: 04/21/2018 PULMONARY PROGRESS NOTE SUBJECTIVE: The patient remains the same in n.p.o. past midnight. Bronchoscopy planned for today has been noted chest congestion and cough. He has been noted awake and alert. Does not follow vocal commands because of chronic neurologic disease. The patient has been noted without any hemodynamic instability. The review of systems could not be obtained at the present time because of the patient's current mental status changes, which is chronic traumatic brain injury. PHYSICAL EXAMINATION: VITAL SIGNS: Vital signs for the patient, which have recorded showed temperature normal, respiratory rate 21, heart rate of 89, and blood pressure 96/67-124/80. Pulse oxygen saturation on room air was 94% saturation. HEENT: On examination, head was atraumatic. Eyes nonicterus. NECK: Supple. CARDIOVASCULAR: S1, S2 audible. LUNGS: Moderate decreased breath sounds were noted in the lungs bilaterally. ABDOMEN: Soft, nontender. EXTREMITIES: Noted without any acute changes. GENITOURINARY: Remains unchanged for hemiparesis and expressive aphasia. LABORATORY DATA: Labs of the patient today. CBC today, WBC count 4.3, hemoglobin 11.1, hematocrit 34.8, and platelet count 106,000. The BMP of patient this morning, BUN normal, creatinine was normal at 1.29, and sodium 148. Vancomycin trough level was still noted elevated, but decreased from 36 to 29 today. IMPRESSION: 1. The patient with acute pneumonia. 2. Acute respiratory failure. Pneumonia was noted from aspiration. 3. Chronic traumatic brain injury. 4. Neurogenic dysphagia. 5. Mild toxicity with vancomycin was also noted with normal kidney functions. PLAN OF MANAGEMENT: Proceed with the bronchoscopy as planned for this patient today. Any additional change in treatment for the patient if needed be done after the bronchoscopy. The assessment and management was discussed with the patient's mother in detail at the bedside. [place], [place] PROGRESS NOTE NAME: CHRISTINE NÚÑEZ UNIT #: [id number] ROOM: 511 DOCTOR: ROSA CHAPPELL MD BIRTHDATE: [birth year] ROSA CARABALLO MD CM:SHAWN 1633 0028 ROSA MAC MD 04/22/18 0026 interface
--- NOTE | ~2018-04-17 | PR ---
[place], [place] PROGRESS NOTE NAME: CHRISTINE NÚÑEZ UNIT #: [id number] ROOM: 511 DOCTOR: RASHMI MAC MD,ROSA BIRTHDATE: [birth year] DOS: 04/27/2018 SUBJECTIVE: The patient was noted comfortable at this time, resting without chest congestion, shortness of breath or distress, does not require any oxygen supplementation. OBJECTIVE: VITAL SIGNS: For the patient which has been recorded showed normal temperature, respiratory rate of 20, heart rate 83, . The pulse oxygen saturation on room air 93% saturation. HEENT: Chronic obesity. Head was atraumatic. Eyes nonicterus. NECK: Supple. CARDIOVASCULAR: S1, S2 audible. LUNGS: Noted without any wheezing or crackles. ABDOMEN: Soft, nontender. EXTREMITIES: Without any acute edema. IMPRESSION: 1. Resolving acute aspiration pneumonia. 2. Improving electrolyte imbalance as well. PLAN OF MANAGEMENT: No changes from the pulmonary standpoint at this time. Continue the current medical management, plan of care. Electrolyte imbalance and acute changes continued to be managed by the Nephrology services follow the recommendations. No change in treatment will be necessary. ROSA CARABALLO MD CM:PNTRANS [id number] ROSA MAC MD 04/27/18 1220 interface
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
--- NOTE | ~2018-04-17 | PR ---
[place], [place] PROGRESS NOTE NAME: CHRISTINE NÚÑEZ UNIT #: [id number] ROOM: 511 DOCTOR: RASHMI MAC MD,ROSA BIRTHDATE: [birth year] DOS: 04/24/2018 SUBJECTIVE: The patient has been noted comfortable at this time, noted awake. The patient getting feeding with assistance. Not been noted any coughing. The patient's shortness of breath without any distress. Unable to have verbal communication. OBJECTIVE: VITAL SIGNS: For the patient which has been recorded showed the temperature noted as normal. The respiratory rate recorded as 24-18, heart rate of 89, blood pressure 142/78. The pulse oxygen saturation recorded as 95% saturation. HEENT: Examination shows head was atraumatic. Eye nonicterus. NECK: Supple. CARDIOVASCULAR: S1, S2 is audible. LUNGS: Noted without any wheezing or crackles at present time. ABDOMEN: Soft and obese. EXTREMITIES: Without any acute edema. LABORATORY DATA: BMP: Sodium 152, potassium 3.1. CBC this morning, normal WBC count and platelet count 91,000. IMPRESSION: 1. The patient who has been currently noted with resolving acute pneumonia. At this time, currently treated with antibiotics of Augmentin. 2. Persistent hypernatremia. 3. Mild hypokalemia. 4. Overall debility with chronic traumatic brain injury. PLAN OF MANAGEMENT: No changes in the plan of therapy at this time. Continue the current plan and management as in progress with other treatment and care. Usual treatment and other therapies as in progress with usual care. ROSA CARABALLO MD CM:PNTRANS [id number] ROSA MAC MD 04/24/18 2320 interface
--- NOTE | ~2018-04-17 | EKG ---
[place], [place] ELECTROCARDIOGRAM REPORT NAME: CHRISTINE NÚÑEZ UNIT #: [id number] ROOM: 511 DOCTOR: RASHMI MAC MD,ROSA BIRTHDATE: [birth year] DOS: 04/20/2018 Electrocardiogram was done at 1:12 p.m. Electrocardiogram noted baseline artifact because of the movement. The sinus tachycardia noted, heart rate of 103+ beats per minute. Further comments, patient electrocardiogram abnormality could not be done because of the artifact. ROSA CARABALLO MD CM:EKGRPT:ELECTROCARDIOGRAM REPORT [id number] ROSA MAC MD
--- NOTE | ~2018-04-17 | PR ---
[place], [place] PROGRESS NOTE NAME: CHRISTINE NÚÑEZ UNIT #: [id number] ROOM: 511 DOCTOR: REMI DUENAS MD BIRTHDATE: [birth year] DOS: NEPHROLOGY FOLLOWUP NOTE SUBJECTIVE: The patient was seen and examined. He was being fed his lunch. He looked unchanged. He was on room air. Apparently, he lost his IV and this had been replaced. Seems there may have been some delay of his IV fluids. He is receiving IV potassium now due to hypokalemia. PHYSICAL EXAMINATION: VITAL SIGNS: Temperature 98.4, pulse 90, respiratory rate 20, blood pressure 136/89. HEENT: Shows no JVD. LUNGS: Diminished breath sounds with no wheeze. HEART: Normal S1, S2. No rub, thrill or gallop. ABDOMEN: Soft, nontender. There is no organomegaly. EXTREMITIES: Had trace edema. SKIN: Showed no rash. LABORATORY DATA: Hemoglobin 11.9, white count of 6.2, platelets 91. BUN 5, creatinine 1.2, sodium 152, potassium 3.1, CO2 of 27, calcium of 8.2. ASSESSMENT AND PLAN: 1. Hypernatremia. This remains unchanged. He is on D5W with potassium. He apparently lost his IV and there likely was some delay with him getting his fluids. We would keep the current rate of 60 mL per hour for now. If his sodium has not improved by tomorrow, we would increase the rate to 100 mL per hour. 2. Hypokalemia. Agree with potassium supplementation. We will check a magnesium level. Replace electrolytes as needed. 3. Anemia. Follow H and H. 4. Hypertension. Continue meds. Can consider hydrochlorothiazide. This may help with his hypernatremia in the long run. 5. Questionable aspiration pneumonia. Antibiotics per the primary and Pulmonary service. [place], [place] PROGRESS NOTE NAME: CHRISTINE NÚÑEZ UNIT #: [id number] ROOM: 511 DOCTOR: REMI DUENAS MD BIRTHDATE: [birth year] REMI DUENAS MD CM:PNTRANS [id number] REMI DUENAS MD 04/24/18 8887 interface
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
--- NOTE | ~2018-04-17 | O ---
[place], [place] OPERATIVE NOTE NAME: CHRISTINE NÚÑEZ UNIT #: [id number] ROOM: 511 DOCTOR: RILEY ALCANTARA MD BIRTHDATE: [birth year] DOS: 04/26/2018 SUBJECTIVE: A 62-year-old patient who presented with neurogenic dysphagia, failure to thrive respiratory insufficiency. I have been asked for assessment of the patient regarding PEG tube arrangement has been made. PAST MEDICAL HISTORY: Associated parkinsonism, seizure disorder, urinary tract infection. PAST SURGICAL HISTORY: MANAGER WATER WASTEWATER shunt, lower back surgery. SOCIAL HISTORY: Unknown. FAMILY HISTORY: COPD. MEDICATIONS: List has been reviewed. Consent has been given by family. PROCEDURE: Today's procedure part of therapy is PEG tube placement. PREMEDICATION: Versed and propofol. SCOPE: Olympus forward-viewing gastroscope Q10. REPORT: After putting the patient in supine position, scope was introduced. Thereafter, under direct visualization, show length of esophagus into gastric pouch into duodenal bulb. Mild gastritis was noticed. At this stage, best transillumination sign, subxiphoid area was identified. Xylocaine 2 mL was injected. Trocar was introduced. Guidewire was advanced and grasped with forceps orally extracted. Gastrostomy tube Green[place] 20 was anchored to it, I have orally pulled, recovered from the surface of the abdomen. Anchors placed, patency checked. The patient tolerated the procedure well. IMPRESSION: Neurogenic dysphagia, status post EGD, PEG finding gastritis and failure to thrive neurogenic dysphagia. PLAN AND DISCUSSION: We are going to start Osmolite on this patient. Osmolite 1.2 at 20 mL per hour, starting at 4 o'clock today afternoon per PEG and infusion of 20 mL of water per hour and increasing tomorrow to 30 mL and by next day to 50 mL. Labs have been reviewed. Records have been reviewed. His electrolytes have been persistently showing hypernatremic hyperchloremia due to the dehydration and prerenal azotemia. We are going to continue with D5W till the sodium is corrected and clinical reassessment. We recognized patient has thrombocytopenia, the last platelet count has been 82. [place], [place] OPERATIVE NOTE NAME: CHRISTINE NÚÑEZ UNIT #: [id number] ROOM: 511 DOCTOR: RILEY ALCANTARA MD BIRTHDATE: [birth year] RILEY ALCANTARA MD CM:DANIA:OPERATIVE NOTE 1419 1450 RILEY ALCANTARA MD 05/23/18 0740 interface
--- NOTE | ~2018-04-17 | PR ---
[place], [place] PROGRESS NOTE NAME: CHRISTINE NÚÑEZ UNIT #: [id number] ROOM: 511 DOCTOR: RASHMI MAC MD,ROSA BIRTHDATE: [birth year] DOS: 04/26/2018 SUBJECTIVE: He has been noted comfortable at this time, resting on the bed. The patient noted nonverbal as previously. There were no signs of respiratory distress noted. There were no findings of acute chest congestion or cough. PHYSICAL EXAMINATION: VITAL SIGNS: The temperature normal this morning, respiratory rate 20, heart rate 88, blood pressure 145/87. Pulse oxygen saturation of the patient noted on room air 93% saturation. HEENT: Examination shows head was atraumatic. Eyes nonicterus. CARDIOVASCULAR: S1, S2 audible. LUNGS: The patient was noted without any wheezing or crackles at the present time. ABDOMEN: Soft, nontender. EXTREMITIES: Without any acute edema. LABORATORY DATA: CBC of the patient this morning, normal WBC count, hemoglobin 11.5, platelet count 82,000 that was mildly decreased. The BMP of patient, BUN 6, creatinine 1.36, sodium 149. IMPRESSION: The patient has been noted currently stable, already treated for acute pneumonia, stable respiratory status without any finding chest congestion, cough, resolving electrolyte imbalance. The patient with hypernatremia. PLAN OF MANAGEMENT: Completion of the antibiotic, acute pneumonia with Augmentin already been continued. Continue other supportive therapy, plan of management. Usual care. Supportive care and therapies. ROSA CARABALLO MD CM:PNTRANS 1036 1502 ROSA MAC MD 04/26/18 1501 interface
--- NOTE | ~2018-04-17 | PR ---
[place], [place] PROGRESS NOTE NAME: CHRISTINE NÚÑEZ UNIT #: [id number] ROOM: 511 DOCTOR: RASHMI MAC MD,ROSA BIRTHDATE: [birth year] DOS: 04/30/2018 SUBJECTIVE: He has been noted comfortable at this time without any acute distress. Has not been reported any acute complaints. The patient noted nonverbal. He has been noted comfortable at the present time. Feeding was continued for the patient from the PEG tube as well. He will be completing the antibiotic today for completion of acute aspiration pneumonia in the lower lungs. OBJECTIVE: VITAL SIGNS: For the patient which were recorded showed the temperature noted as normal. The respiratory rate of the patient recorded as 20, heart rate 72, blood pressure 113/53. HEENT: Examination shows head was atraumatic. Eyes nonicterus. NECK: Supple. CARDIOVASCULAR: S1, S2 audible. LUNGS: Noted without any wheeze or crackles. ABDOMEN: Soft, nontender. EXTREMITIES: Without any acute edema. IMPRESSION: Stable respiratory status was noted at the present time, responding to the treatment very well, improving hyponatremia and resolution of the acute pneumonia. PLAN OF MANAGEMENT: The patient at this time to be continued as ongoing for the nutrition support. Increase free water through the PEG tube to improve the electrolyte imbalance. ROSA CARABALLO MD CM:PNTRANS [id number] [id number] ROSA MAC MD 04/30/18 1707 interface
--- NOTE | ~2018-04-17 | PR ---
[place], [place] PROGRESS NOTE NAME: CHRISTINE NÚÑEZ UNIT #: [id number] ROOM: 511 DOCTOR: RASHMI MAC MD,ROSA BIRTHDATE: [birth year] DOS: 04/23/2018 PULMONARY PROGRESS NOTE SUBJECTIVE: He has been noted comfortable at this time, awake and alert without any acute distress. He had not been noted any finding with chest congestion at this time or respiratory distress. The patient can verbally communicate. OBJECTIVE: VITAL SIGNS: For the patient which are recorded showed normal temperature, respiratory rate 20, heart rate 98, blood pressure 142/98, pulse oxygen saturation on room air 94% saturation. HEENT: Head was atraumatic. Eyes nonicterus. NECK: Supple. CARDIOVASCULAR: S1, S2 is audible. LUNGS: Noted without any wheeze or crackles at the present time. ABDOMEN: Soft, nontender. Bowel sounds present. EXTREMITIES: Without any acute edema. LABORATORY DATA: BMP today, sodium 152, potassium 3.4, chloride 117. CBC, WBC count normal, platelet count of 95,000 mildly decreased. IMPRESSION: 1. Stable respiratory status. The patient was noted at the present time with acute pneumonia, status post bronchoscopy. 2. History of seizures. 3. The patient with chronic neurologic issues from the past traumatic brain injury. PLAN OF MANAGEMENT: De-escalate the antibiotic, start the patient on Augmentin. Discontinue all other broad spectrum intravenous antibiotics. Medical management of the hyponatremia has been addressed by the Nephrology Services. ROSA CARABALLO MD CM:PNTRANS 1337 [id number] ROSA MAC MD 04/24/18 0136 interface
[~2018-04-17 01:56] MED LIST changes: +ATIVAN0.5 MG PEG; +BACTRIM 400-801 EACH PO; +BENZTROPINE ME0.5 MG PEG; -BENZTROPINE ME0.5 MG PO; +CLARITIN10 MG PEG; +DEPAKOTE SPRIN125 M1 PEG; -DEPAKOTE SPRIN125 MG PO; +DEPLIN-ALGAL O1 EAC1 PEG; +DOCUSATE S100 MG/10 PEG; -DOCUSATE S100 MG/10 PO; +DOXYCYCLINE50 M1 PO; +LACTULOSE20 GM/30 M PEG; -LACTULOSE20 GM/30 M PO; +MOBIC15 MG PEG; +NUED1CAP PEG; +TYLENOL325 M1 PEG; -TYLENOL325 M1 PO; +VITAMIN D35000 UNIT PEG; +XIFAXAN550 MG PEG
[2018-04-17 02:34] LABS: BASO % 0.2 % (0.0-1.0); EOS % 0.3 % (1.0-4.0); HEMATOCRIT 45.1 % (42.0-52.0); HEMOGLOBIN 14.9 g/dl (14.0-18.0); LYMPH # 2.5 10*3/uL (1.3-4.4); LYMPH % 19.1 % (27.0-41.0); MEAN CELL VOLUME 95.3 fl (80.0-94.0); MEAN CORPUSCULAR HGB 31.5 pg (27.0-31.0); MEAN PLATELET VOLUME 10.1 fl (9.6-12.3); MONO # 0.6 10*3/uL (0.1-1.0); MONO % 4.8 % (3.0-9.0); NEUT # 9.7 10*3/uL (2.3-7.9); NEUT % 74.8 % (47.0-73.0); PLATELET COUNT AUTOMATED 213 10*3/uL (130-400); RED BLOOD COUNT 4.73 10*6/uL (4.50-5.90); RED CELL DISTRI WIDTH 12.7 % (0-14.5); WHITE BLOOD COUNT 12.9 10*3/uL (4.8-10.8)
[2018-04-17 02:45] LABS: ACT PARTIAL THROMBO TIME 25.7 SECONDS (20.8-31.5)
[2018-04-17 02:51] LABS: ALBUMIN 3.2 gm/dl (3.1-4.5); ALKALINE PHOSPHATASE 57 U/L (45-117); BUN 11 mg/dl (7-24); CHLORIDE 100 mmol/L (98-107); CREATININE 0.76 mg/dL (0.70-1.30); LIPASE 274 U/L (73-393); POTASSIUM 4.2 mmol/L (3.5-5.1); SGOT/AST 27 IU/L (3-35); SGPT/ALT 32 U/L (12-78); SODIUM 137 mmol/L (136-145); TOTAL PROTEIN 6.8 gm/dL (6.4-8.2)
[2018-04-17 02:52] LABS: TROPONIN I < 0.015 ng/ml (<0.045)
[2018-04-17 19:40] LABS: BILIRUBIN NEGATIVE (NEGATIVE); BLOOD NEGATIVE (NEGATIVE); CLARITY SL CLOUDY (CLEAR); COLOR YELLOW (YELLOW); GLUCOSE NEGATIVE (NEGATIVE); KETONE TRACE (NEGATIVE); LEUKO ESTERASE NEGATIVE (NEGATIVE); NITRITE NEGATIVE (NEGATIVE); UROBILINOGEN 0.2 E.U./dl (0.2-1.0)
[2018-04-17 19:47] LABS: BACTERIA 2+; MUCOUS TRACE
[2018-04-18] VITALS: BP 104/54
[2018-04-18 06:43] LABS: BASO % 0.1 % (0.0-1.0); EOS # 0.1 10*3/uL (0.0-0.4); EOS % 0.7 % (1.0-4.0); LYMPH # 1.3 10*3/uL (1.3-4.4); MEAN CELL VOLUME 97.3 fl (80.0-94.0); MEAN CORPUSCULAR HGB 31.5 pg (27.0-31.0); MEAN CORPUSCULAR HGB CONC 32.4 g/dl (33.0-37.0); MEAN PLATELET VOLUME 10.6 fl (9.6-12.3); MONO # 0.8 10*3/uL (0.1-1.0); MONO % 11.1 % (3.0-9.0); NEUT # 5.3 10*3/uL (2.3-7.9); NEUT % 70.4 % (47.0-73.0); RED BLOOD COUNT 3.71 10*6/uL (4.50-5.90); WHITE BLOOD COUNT 7.5 10*3/uL (4.8-10.8)
[2018-04-18 06:53] LABS: HEMATOCRIT 36.1 % (42.0-52.0); HEMOGLOBIN 11.7 g/dl (14.0-18.0); PLATELET COUNT AUTOMATED 116 10*3/uL (130-400)
[2018-04-18 07:22] LABS: BUN 11 mg/dl (7-24); CHLORIDE 106 mmol/L (98-107); CREATININE 1.17 mg/dL (0.70-1.30); PHOSPHOROUS 3.3 mg/dL (2.5-4.9); POTASSIUM 4.4 mmol/L (3.5-5.1); SODIUM 141 mmol/L (136-145)
[2018-04-18 07:33] LABS: VALPROIC ACID (DEPAKENE) 45.1 ug/ml (50-100)
[2018-04-18 08:00] VITALS: BP 101/84
[2018-04-18 12:00] VITALS: BP 110/76
[2018-04-18 16:00] VITALS: BP 114/83
[2018-04-18 20:00] VITALS: BP 106/64
[2018-04-19] VITALS: BP 109/55
[2018-04-19 08:00] VITALS: BP 103/66
[2018-04-19 12:00] VITALS: BP 110/76
[2018-04-19 16:00] VITALS: BP 116/91
[2018-04-19 20:00] VITALS: BP 126/91
[2018-04-20] VITALS: BP 107/75
[2018-04-20 07:22] LABS: BASO % 0.3 % (0.0-1.0); EOS # 0.1 10*3/uL (0.0-0.4); EOS % 1.9 % (1.0-4.0); HEMATOCRIT 35.1 % (42.0-52.0); HEMOGLOBIN 11.1 g/dl (14.0-18.0); LYMPH # 1.2 10*3/uL (1.3-4.4); LYMPH % 20.7 % (27.0-41.0); MEAN CORPUSCULAR HGB CONC 31.6 g/dl (33.0-37.0); MONO # 0.7 10*3/uL (0.1-1.0); MONO % 11.1 % (3.0-9.0); NEUT # 3.8 10*3/uL (2.3-7.9); NEUT % 64.7 % (47.0-73.0); PLATELET COUNT AUTOMATED 114 10*3/uL (130-400); RED BLOOD COUNT 3.58 10*6/uL (4.50-5.90); RED CELL DISTRI WIDTH 13.2 % (0-14.5); WHITE BLOOD COUNT 5.9 10*3/uL (4.8-10.8)
[2018-04-20 07:40] LABS: ALBUMIN 2.4 gm/dl (3.1-4.5); CREATININE 1.61 mg/dL (0.70-1.30); POTASSIUM 3.8 mmol/L (3.5-5.1); TOTAL PROTEIN 5.6 gm/dL (6.4-8.2)
[2018-04-20 08:00] VITALS: BP 122/78
[2018-04-20 12:00] VITALS: BP 123/85
[2018-04-20 13:12] LABS: ACT PARTIAL THROMBO TIME 29.6 SECONDS (20.8-31.5); INTERNATIONAL NORM RATIO 1.1 (2.0-3.5)
[2018-04-20 16:00] VITALS: BP 113/53
[2018-04-20 20:00] VITALS: BP 107/81
[2018-04-21] VITALS (8 sets, daily range): BP systolic 96–135; BP diastolic 67–84
[2018-04-21 11:26] LABS: BASO % 0.5 % (0.0-1.0); EOS # 0.1 10*3/uL (0.0-0.4); EOS % 2.6 % (1.0-4.0); HEMATOCRIT 34.8 % (42.0-52.0); HEMOGLOBIN 11.1 g/dl (14.0-18.0); LYMPH # 0.8 10*3/uL (1.3-4.4); LYMPH % 19.3 % (27.0-41.0); MEAN CORPUSCULAR HGB 31.3 pg (27.0-31.0); MEAN CORPUSCULAR HGB CONC 31.9 g/dl (33.0-37.0); MEAN PLATELET VOLUME 10.6 fl (9.6-12.3); MONO # 0.5 10*3/uL (0.1-1.0); MONO % 12.5 % (3.0-9.0); NEUT # 2.7 10*3/uL (2.3-7.9); NEUT % 63.2 % (47.0-73.0); PLATELET COUNT AUTOMATED 106 10*3/uL (130-400); RED BLOOD COUNT 3.55 10*6/uL (4.50-5.90); RED CELL DISTRI WIDTH 13.2 % (0-14.5); WHITE BLOOD COUNT 4.3 10*3/uL (4.8-10.8)
[2018-04-21 11:35] LABS: ALBUMIN 2.3 gm/dl (3.1-4.5); BUN 10 mg/dl (7-24); CHLORIDE 115 mmol/L (98-107); CREATININE 1.29 mg/dL (0.70-1.30); POTASSIUM 3.5 mmol/L (3.5-5.1); SODIUM 148 mmol/L (136-145)
[2018-04-21 11:36] LABS: PHOSPHOROUS 3.3 mg/dL (2.5-4.9)
[2018-04-22] VITALS: BP 118/77
[2018-04-22 01:00] VITALS: BP 118/77
[2018-04-22 07:05] LABS: ALBUMIN 2.2 gm/dl (3.1-4.5); BUN 9 mg/dl (7-24); CHLORIDE 116 mmol/L (98-107); CREATININE 1.32 mg/dL (0.70-1.30); PHOSPHOROUS 3.2 mg/dL (2.5-4.9); POTASSIUM 3.5 mmol/L (3.5-5.1); SODIUM 150 mmol/L (136-145)
[2018-04-22 08:00] VITALS: BP 139/80; BP 145/87
[2018-04-22 12:00] VITALS: BP 122/68
[2018-04-22 13:06] LABS: ACID FAST SPEC PROCESSING Concentration (.)
[2018-04-22 16:00] VITALS: BP 123/89
[2018-04-22 20:00] VITALS: BP 130/83
[2018-04-23] VITALS: BP 135/89
[2018-04-23 06:15] LABS: BASO % 0.6 % (0.0-1.0); EOS # 0.2 10*3/uL (0.0-0.4); EOS % 2.9 % (1.0-4.0); HEMATOCRIT 33.6 % (42.0-52.0); HEMOGLOBIN 10.8 g/dl (14.0-18.0); LYMPH # 1.2 10*3/uL (1.3-4.4); MEAN CELL VOLUME 98.2 fl (80.0-94.0); MEAN CORPUSCULAR HGB 31.6 pg (27.0-31.0); MEAN CORPUSCULAR HGB CONC 32.1 g/dl (33.0-37.0); MEAN PLATELET VOLUME 11.1 fl (9.6-12.3); MONO # 0.7 10*3/uL (0.1-1.0); MONO % 13.2 % (3.0-9.0); NEUT # 2.9 10*3/uL (2.3-7.9); NEUT % 57.4 % (47.0-73.0); PLATELET COUNT AUTOMATED 95 10*3/uL (130-400); RED BLOOD COUNT 3.42 10*6/uL (4.50-5.90); RED CELL DISTRI WIDTH 13.4 % (0-14.5); WHITE BLOOD COUNT 5.1 10*3/uL (4.8-10.8)
[2018-04-23 06:49] LABS: CHLORIDE 117 mmol/L (98-107); POTASSIUM 3.4 mmol/L (3.5-5.1); SODIUM 152 mmol/L (136-145)
[2018-04-23 06:53] LABS: BUN 7 mg/dl (7-24); CREATININE 1.27 mg/dL (0.70-1.30)
[2018-04-23 08:00] VITALS: BP 119/94
[2018-04-23 12:00] VITALS: BP 143/98
[2018-04-23 16:08] VITALS: BP 134/92
[2018-04-23 20:00] VITALS: BP 132/85
[2018-04-24] VITALS: BP 142/77
[2018-04-24 06:34] LABS: HEMATOCRIT 38.3 % (42.0-52.0); HEMOGLOBIN 11.9 g/dl (14.0-18.0); MEAN CELL VOLUME 99.7 fl (80.0-94.0); MEAN CORPUSCULAR HGB CONC 31.1 g/dl (33.0-37.0); MEAN PLATELET VOLUME 11.1 fl (9.6-12.3); PLATELET COUNT AUTOMATED 91 10*3/uL (130-400); RED BLOOD COUNT 3.84 10*6/uL (4.50-5.90); RED CELL DISTRI WIDTH 13.5 % (0-14.5); WHITE BLOOD COUNT 6.2 10*3/uL (4.8-10.8)
[2018-04-24 07:00] LABS: BUN 5 mg/dl (7-24); CHLORIDE 115 mmol/L (98-107); CREATININE 1.24 mg/dL (0.70-1.30); POTASSIUM 3.1 mmol/L (3.5-5.1); SODIUM 152 mmol/L (136-145)
[2018-04-24 07:26] LABS: PLATELET SUFFICIENCY LOW (NORMAL); TOTAL CELLS COUNTED 100 #CELLS
[2018-04-24 07:27] LABS: BURR CELLS FEW
[2018-04-24 08:00] VITALS: BP 143/78
[2018-04-24 12:00] VITALS: BP 136/89
[2018-04-24 16:00] VITALS: BP 109/88
[2018-04-24 20:00] VITALS: BP 128/82
[2018-04-25] VITALS: BP 138/89
[2018-04-25 07:27] LABS: BUN 5 mg/dl (7-24); CHLORIDE 115 mmol/L (98-107); CREATININE 1.37 mg/dL (0.70-1.30); POTASSIUM 3.7 mmol/L (3.5-5.1); SODIUM 149 mmol/L (136-145)
[2018-04-25 08:00] VITALS: BP 123/79
[2018-04-25 12:00] VITALS: BP 138/85
[2018-04-25 16:00] VITALS: BP 123/72
[2018-04-25 20:00] VITALS: BP 122/82
[2018-04-26] VITALS (8 sets, daily range): BP systolic 121–154; BP diastolic 77–95
[2018-04-26 06:41] LABS: HEMOGLOBIN 11.5 g/dl (14.0-18.0); MEAN CELL VOLUME 98.9 fl (80.0-94.0); MEAN CORPUSCULAR HGB 31.6 pg (27.0-31.0); MEAN CORPUSCULAR HGB CONC 31.9 g/dl (33.0-37.0); MEAN PLATELET VOLUME 10.7 fl (9.6-12.3); PLATELET COUNT AUTOMATED 82 10*3/uL (130-400); RED BLOOD COUNT 3.64 10*6/uL (4.50-5.90); RED CELL DISTRI WIDTH 13.4 % (0-14.5); WHITE BLOOD COUNT 6.6 10*3/uL (4.8-10.8)
[2018-04-26 07:05] LABS: BUN 6 mg/dl (7-24); CHLORIDE 114 mmol/L (98-107); CREATININE 1.36 mg/dL (0.70-1.30); POTASSIUM 3.7 mmol/L (3.5-5.1); SODIUM 149 mmol/L (136-145)
[2018-04-26 07:13] LABS: PLATELET SUFFICIENCY LOW (NORMAL); TOTAL CELLS COUNTED 100 #CELLS
[2018-04-27] VITALS: BP 102/58
[2018-04-27 07:11] LABS: HEMATOCRIT 34.4 % (42.0-52.0); HEMOGLOBIN 10.8 g/dl (14.0-18.0); MEAN CELL VOLUME 98.9 fl (80.0-94.0); MEAN CORPUSCULAR HGB CONC 31.4 g/dl (33.0-37.0); MEAN PLATELET VOLUME 10.8 fl (9.6-12.3); PLATELET COUNT AUTOMATED 81 10*3/uL (130-400); RED BLOOD COUNT 3.48 10*6/uL (4.50-5.90); RED CELL DISTRI WIDTH 13.3 % (0-14.5); WHITE BLOOD COUNT 7.4 10*3/uL (4.8-10.8)
[2018-04-27 07:23] LABS: BUN 10 mg/dl (7-24); CHLORIDE 112 mmol/L (98-107); CREATININE 1.35 mg/dL (0.70-1.30); PHOSPHOROUS 3.6 mg/dL (2.5-4.9); SODIUM 147 mmol/L (136-145)
[2018-04-27 07:24] LABS: POTASSIUM 3.3 mmol/L (3.5-5.1)
[2018-04-27 07:32] LABS: TOTAL CELLS COUNTED 100 #CELLS
[2018-04-27 07:33] LABS: PLATELET SUFFICIENCY LOW (NORMAL)
[2018-04-27 08:00] VITALS: BP 129/84
[2018-04-27 12:00] VITALS: BP 127/50
[2018-04-27 16:00] VITALS: BP 119/89
[2018-04-27 20:00] VITALS: BP 110/83
[2018-04-28] VITALS: BP 103/87
[2018-04-28 07:24] LABS: HEMATOCRIT 37.5 % (42.0-52.0); MEAN CELL VOLUME 98.2 fl (80.0-94.0); MEAN CORPUSCULAR HGB 31.4 pg (27.0-31.0); PLATELET COUNT AUTOMATED 97 10*3/uL (130-400); RED BLOOD COUNT 3.82 10*6/uL (4.50-5.90); RED CELL DISTRI WIDTH 13.2 % (0-14.5); WHITE BLOOD COUNT 9.5 10*3/uL (4.8-10.8)
[2018-04-28 07:39] LABS: ALBUMIN 2.1 gm/dl (3.1-4.5); ALKALINE PHOSPHATASE 41 U/L (45-117); BUN 11 mg/dl (7-24); CHLORIDE 116 mmol/L (98-107); CREATININE 1.25 mg/dL (0.70-1.30); PHOSPHOROUS 3.5 mg/dL (2.5-4.9); POTASSIUM 3.7 mmol/L (3.5-5.1); SGOT/AST 14 IU/L (3-35); SGPT/ALT 10 U/L (12-78); SODIUM 150 mmol/L (136-145); TOTAL PROTEIN 5.4 gm/dL (6.4-8.2)
[2018-04-28 07:48] LABS: TOTAL CELLS COUNTED 100 #CELLS
[2018-04-28 07:49] LABS: PLATELET SUFFICIENCY LOW (NORMAL)
[2018-04-28 08:00] VITALS: BP 121/75
[2018-04-28 12:00] VITALS: BP 114/70
[2018-04-28 16:00] VITALS: BP 131/82
[2018-04-28 20:00] VITALS: BP 131/88
[2018-04-29] VITALS: BP 126/77
[2018-04-29 07:08] LABS: ALBUMIN 2.3 gm/dl (3.1-4.5); BUN 15 mg/dl (7-24); CHLORIDE 109 mmol/L (98-107); CREATININE 1.26 mg/dL (0.70-1.30); PHOSPHOROUS 3.3 mg/dL (2.5-4.9); POTASSIUM 4.1 mmol/L (3.5-5.1); SODIUM 148 mmol/L (136-145)
[2018-04-29 08:00] VITALS: BP 108/73
[2018-04-29 12:00] VITALS: BP 133/81
[2018-04-29 16:00] VITALS: BP 110/69
[2018-04-29 20:09] VITALS: BP 104/79
[2018-04-30] VITALS: BP 113/54
[2018-04-30 06:46] LABS: HEMATOCRIT 36.5 % (42.0-52.0); HEMOGLOBIN 11.5 g/dl (14.0-18.0); MEAN CELL VOLUME 98.6 fl (80.0-94.0); MEAN CORPUSCULAR HGB 31.1 pg (27.0-31.0); MEAN CORPUSCULAR HGB CONC 31.5 g/dl (33.0-37.0); MEAN PLATELET VOLUME 10.5 fl (9.6-12.3); RED CELL DISTRI WIDTH 13.3 % (0-14.5); WHITE BLOOD COUNT 10.7 10*3/uL (4.8-10.8)
[2018-04-30 06:49] LABS: ALBUMIN 2.2 gm/dl (3.1-4.5); BUN 18 mg/dl (7-24); CHLORIDE 111 mmol/L (98-107); CREATININE 1.15 mg/dL (0.70-1.30); PHOSPHOROUS 2.9 mg/dL (2.5-4.9); POTASSIUM 3.7 mmol/L (3.5-5.1); SODIUM 148 mmol/L (136-145)
[2018-04-30 06:50] LABS: PLATELET COUNT AUTOMATED 132 10*3/uL (130-400)
[2018-04-30 07:50] LABS: BASOPHILS 1 % (0-1); TOTAL CELLS COUNTED 100 #CELLS
[2018-04-30 07:51] LABS: PLATELET SUFFICIENCY NORMAL (NORMAL)
[2018-04-30 08:00] VITALS: BP 95/78
[2018-04-30 12:00] VITALS: BP 113/53
[2018-04-30] MEDS ORDERED: PREDNISONE10 MG PO (13:39)
[2018-06-01 10:03] LABS: ACID FAST CULTURE Negative (.)
== END 2018-04-30 16:25 | disposition other institution (70) | DRG 871 ==
LOC: ED 01:56 → EDHOLD 03:14 → 5E 03:14
PROVIDERS: Emergency Medicine Emergency Medical Services; Internal Medicine; Internal Medicine Critical Care Medicine; Internal Medicine Gastroenterology; Internal Medicine Nephrology; Registered Nurse; Student in an Organized Health Care Education/Training Program
DX: A41.9 Sepsis, unspecified organism (principal); J69.0 Pneumonitis due to inhalation of food and vomit; E43 Unspecified severe protein-calorie malnutrition; G93.41 Metabolic encephalopathy; G91.9 Hydrocephalus, unspecified; N17.9 Acute kidney failure, unspecified; R13.10 Dysphagia, unspecified; D69.6 Thrombocytopenia, unspecified; E87.0 Hyperosmolality and hypernatremia; F03.91 Unspecified dementia, unspecified severity, with behavioral disturbance; R47.01 Aphasia; Y99.8 Other external cause status; R65.20 Severe sepsis without septic shock; R62.7 Adult failure to thrive; S06.9X9S Unspecified intracranial injury with loss of consciousness of unspecified duration, sequela; F41.1 Generalized anxiety disorder; F32.9 Major depressive disorder, single episode, unspecified; G20 Parkinson's disease; G47.00 Insomnia, unspecified; E87.6 Hypokalemia; E83.41 Hypermagnesemia; G40.909 Epilepsy, unspecified, not intractable, without status epilepticus; D64.9 Anemia, unspecified; E86.9 Volume depletion, unspecified; K29.70 Gastritis, unspecified, without bleeding; F63.81 Intermittent explosive disorder; T36.8X5A Adverse effect of other systemic antibiotics, initial encounter; Z79.899 Other long term (current) drug therapy; Z98.2 Presence of cerebrospinal fluid drainage device; Z93.1 Gastrostomy status; Z83.6 Family history of other diseases of the respiratory system; Z87.440 Personal history of urinary (tract) infections; Z68.25 Body mass index [BMI] 25.0-25.9, adult; X58.XXXA Exposure to other specified factors, initial encounter; Y93.89 Activity, other specified; Y92.89 Other specified places as the place of occurrence of the external cause

== ENCOUNTER 2018-05-22 06:13 | Inpatient (IN) | payer MEDICARE ==
[~2018-05-22] VITALS: Ht 177.8 cm; Wt 91.6 kg
[2018-05-22] VITALS (11 sets, daily range): BP systolic 96–141; BP diastolic 67–99
--- NOTE | ~2018-05-22 | PR ---
[place], [place] PROGRESS NOTE NAME: CHRISTINE NÚÑEZ UNIT #: [id number] ROOM: [facility] DOCTOR: RASHMI MAC MD,ROSA BIRTHDATE: [birth year] DOS: 05/26/2018 SUBJECTIVE: The patient noted comfortable at this time without acute distress. He has been resting comfortably. Continues intravenous antibiotic for Pseudomonas aeruginosa pneumonia and tracheobronchitis. He has been currently planned for EGD to be done today by the powerhouse oiler. OBJECTIVE: VITAL SIGNS: Normal temperature, respiratory rate 18, heart rate 78, blood pressure 117/70. Pulse oxygen saturation of the patient on 2 liters nasal cannula is 97% saturation. HEENT: Examination shows head was atraumatic. Eyes nonicterus. NECK: Supple, past tracheostomy stoma in the neck from tracheostomy. CARDIOVASCULAR: S1, S2 audible. LUNGS: Without any wheezing or crackles. ABDOMEN: Soft and obese. EXTREMITIES: No new changes. LABORATORY DATA: CBC today, WBC count 5.1, platelet count 108,000, which was gradually improving. BUN and creatinine of the patient noted as normal. IMPRESSION: 1. The patient has been currently noted with an acute Pseudomonas aeruginosa pneumonia at the present time. 2. Chronic traumatic brain injury of the patient with bedbound status. 3. Neurogenic dysphagia. PLAN OF TREATMENT: Continue antibiotics, bronchodilators, oxygen supplementation, other plan of management previously in progress. Usual care, other supportive therapy, plan of management and care. ROSA CARABALLO MD CM:PNTRANS 1314 0100 ROSA MAC MD 05/27/18 0059 interface
--- NOTE | ~2018-05-22 | PR ---
[place], [place] PROGRESS NOTE NAME: CHRISTINE NÚÑEZ UNIT #: [id number] ROOM: 422 DOCTOR: RASHMI MAC MD,ROSA BIRTHDATE: [birth year] DOS: 05/28/2018 PULMONARY PROGRESS NOTE SUBJECTIVE: The patient noted comfortable at this time, awake and alert this morning, transferred to telemetry floor, where he has been noted comfortable at this time. Feeding was continued from the PEG tube. The patient has not been noted chest congestion and cough. OBJECTIVE: VITAL SIGNS: Normal temperature, respiratory rate 18, heart rate 82, blood pressure 129/72. Pulse ox saturation on 2 liters nasal cannula is 100% saturation. HEENT: Examination shows head was atraumatic. Eyes nonicterus. NECK: Supple. CARDIOVASCULAR: S1, S2 audible. LUNGS: Without any wheeze or crackles. ABDOMEN: Soft, nontender. EXTREMITIES: Without any new changes. 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 PLAN OF MANAGEMENT: Continue patient's current plan of management with antibiotics, bronchodilators, oxygen supplementation and other care. Usual treatment, other supportive plan of management. ROSA CARABALLO MD CM:PNTRANS [id number] ROSA MAC MD 05/28/18 0003 interface
--- NOTE | ~2018-05-22 | PR ---
[place], [place] PROGRESS NOTE NAME: CHRISTINE NÚÑEZ UNIT #: [id number] ROOM: 422 DOCTOR: ROSA CHAPPELL MD BIRTHDATE: [birth year] DOS: 05/27/2018 SUBJECTIVE: The patient remains comfortable at this time, resting on the bed without any acute distress. There were no symptoms of shortness of breath, some cough and noted mostly including Lipitor at time. As per nursing staff the family members state that patient has more cough. He continued to have intermittent cough. He has been started feeding that was continued. OBJECTIVE: VITAL SIGNS: The patient showed normal temperature, respiratory rate 20, heart rate 76, blood pressure 120/86. The pulse oxygen saturation of the patient recorded as 97% saturation on 2 liters nasal cannula. HEENT: Examination shows head was atraumatic. Eyes nonicterus. NECK: Supple. CARDIOVASCULAR: S1, S2 is audible. LUNGS: The patient was noted without any wheezing or crackles. ABDOMEN: Soft, nontender and obese. EXTREMITIES: Without any acute edema. LABORATORY DATA: BMP: BUN normal, creatinine normal, sodium was normal. Phosphorus 1.9. Hemoglobin today was 10.4, hematocrit 31.4. The patient has EGD done yesterday that has reported with findings of resolution of previous noted bleeding from the stomach. IMPRESSION: 1. The patient has been currently noted at this time with acute Pseudomonas aeruginosa, pneumonia, which has been improving clinically progressively. 2. History of chronic traumatic brain injury, change in mental status. 3. Anemia for the patient, which remained stable with previous GI bleeding. PLAN OF MANAGEMENT: No change in the plan of care at this time. Continuation of current plan of management, antibiotics, bronchodilators, oxygen supplementation and others. No new changes in the management needs to be done today. [place], [place] PROGRESS NOTE NAME: CHRISTINE NÚÑEZ UNIT #: [id number] ROOM: 422 DOCTOR: ROSA CHAPPELL MD BIRTHDATE: [birth year] ROSA CARABALLO MD CM:PNTRANS [phone] [id number] ROSA MAC MD 05/27/182053 interface
--- NOTE | ~2018-05-22 | O ---
[place], [place] OPERATIVE NOTE NAME: CHRISTINE NÚÑEZ UNIT #: [id number] ROOM: [facility]- DOCTOR: RILEY ALCANTARA MD BIRTHDATE: [birth year] DOS: 05/22/2018 GASTROENDOSCOPIC REPORT INDICATIONS: This is a 62-year-old patient who has presented with hematemesis. The patient with mental retardation, status post previous known history of dysphagia, PEG tube placement. PAST MEDICAL HISTORY: Associated with aphasia, dementia, depression, aspiration, mental retardation, seizure disorder, and hematemesis. PAST SURGICAL HISTORY: Ventricular shunt left leg plate. Percutaneous gastrostomy tube. SOCIAL HISTORY: Nonsmoker, nonalcohol consumer. FAMILY HISTORY: Noncontributory. ALLERGIES: No known. MEDICATION: List has been reviewed. PROCEDURE: Today's procedure part of investigation of hematemesis, panendoscopy plus Resolution clips x 2 for hemostasis therapy. PREMEDICATION: Propofol. SCOPE: Olympus forward-viewing gastroscope Q10 video. REPORT: After putting the patient in left lateral position and application of lubricant to the scope, the scope was introduced. Thereafter, under direct visualization, advanced through the length of esophagus without difficulty. Surprisingly, there were no esophageal ulcerations. Moderate bile reflux in the gastric pouch and cardia of the stomach was noticed suctioned out. PEG tube underneath was inspected. There was no necrotic ulcer in the PEG tube surrounding to be concerned about. Duodenal bulb, second and third part free of ulceration that was withdrawn slightly and bilious matter was suctioned out about antral area. There is a visible Dieulafoy's vessel noticed. This is flat with the surface. Two Resolution clips one in the right flank, one in the left flank was applied. Air was suctioned out. The patient was extubated, tolerated the procedure well. IMPRESSION: Visible vessel in the antrum of the stomach, status post Resolution clips x 2 for hemostasis therapy. PLAN AND DISCUSSION: While the patient is here, sucralfate 2 grams slurry q.i.d., Protonix 40 mg IV b.i.d. and as outpatient to continue him on Carafate for 1 month at least and continuation of Protonix thereafter permanently as well as antireflux measures with elevation of the head of the bed 6 inches at all time withholding aspirin products for 2 weeks and withholding Mobic products for [place], [place] OPERATIVE NOTE NAME: CHRISTINE NÚÑEZ UNIT #: [id number] ROOM: [facility] DOCTOR: QUINTON PAZ,RILEY BIRTHDATE: [birth year] 2 weeks. Pain management with other modalities and clinical reassessment. RILEY ALCANTARA MD CM:OPRECORD:OPERATIVE NOTE 10 01 RILEY ALCANTARA MD 05/22/18 230 interface
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
--- NOTE | ~2018-05-22 | O ---
[place], [place] OPERATIVE NOTE NAME: CHRISTINE NÚÑEZ UNIT #: [id number] ROOM: [facility]- DOCTOR: RILEY ALCANTARA MD BIRTHDATE: [birth year] DOS: 05/26/2018 GASTROENDOSCOPIC REPORT INDICATIONS: The patient has presented with GI bleed. The patient is bedridden, noncommunicative. The patient is status post PEG tube recently. The patient was found to a visible vessel bleeding in the gastric pouch, status post Resolution clip and Sandostatin therapy. There has been a sudden drop in H and H over the past 24 hours and I have been asked for assessment of the patient. His latest H and H dropped to 7 and 24, was concerning. He received 2 units of packed cell and improved to 10 and 30. PROCEDURE: Today's procedure part of investigation of concern about the source of bleeding and rebleeding from the gastric pouch is panendoscopy. PREMEDICATION: Propofol. SCOPE: Olympus forward-viewing gastroscope Q10 video. REPORT: After putting the patient in left lateral position and application of lubricant to the scope, the scope was introduced. Thereafter, under direct visualization, advanced through the length of esophagus without difficulty into gastric pouch. Resolution clips were intact. There is no active bleeding in the stomach. PEG tube intact. There is no ulceration underneath the dish of the PEG tube. Duodenum is free of ulceration bleeding site. Air was suctioned out. The patient was extubated, and tolerated the procedure well. IMPRESSION: Status post previous Resolution clips for bleeding visible vessel, status post previous gastrostomy, at the present time gastritis. PLAN AND DISCUSSION: We are going to continue with the same trend of the therapy, observing H and H supportive management. RILEY ALCANTARA MD CM:OPRECORD:OPERATIVE NOTE [id number] RILEY ALCANTARA MD 05/26/18 3034 interface
--- NOTE | ~2018-05-22 | PR ---
[place], [place] PROGRESS NOTE NAME: CHRISTINE NÚÑEZ UNIT #: [id number] ROOM: [facility] DOCTOR: RASHMI MAC MD,ROSA BIRTHDATE: [birth year] DOS: 05/25/2018 PULMONARY PROGRESS NOTE SUBJECTIVE: The patient noted comfortable, resting in the bed, noted nonverbal. He has not been noted symptoms of chest pain or any acute hemoptysis. The patient has not been reported any symptoms of abdominal pain. He has not been noted with any episodes of vomiting. REVIEW OF SYSTEMS: Cannot be completed because the patient is nonverbal with history of traumatic brain injury. OBJECTIVE: VITAL SIGNS: Rectal temperature 99.8 degree Fahrenheit, there were normal temperature, respiratory rate 22, heart rate 85, blood pressure 96/46, pulse oxygen saturation on 2 liters, 96% saturation. HEENT: Head was atraumatic. Eyes: No icterus. NECK: Supple. CARDIOVASCULAR: S1, S2 audible. LUNGS: The patient noted moderate decreased breath sounds in the lungs were noted bilaterally. ABDOMEN: Soft, nontender, bowel sounds present. EXTREMITIES: The patient noted without any acute edema. MUSCULOSKELETAL: Noted with chronic deformity the patient after traumatic brain injury. VISIBLE SKIN: No lesions or rashes. CENTRAL NERVOUS SYSTEMS: Traumatic brain injury. LABORATORY DATA: The patient is noted. CBC done today: WBC count normal, hemoglobin 7.8, hematocrit 24.7 and platelet count 94,000. CMP this morning, BUN normal, creatinine was normal, glucose 111. Albumin is 2.3. The culture of the bronchial washing noted as findings of Pseudomonas aeruginosa as moderate growth. He was noted sensitive to the imipenem, meropenem, Zosyn and tobramycin. IMPRESSION: 1. The patient with acute pneumonia suspected with acute tracheobronchitis in the right upper lobe Pseudomonas aeruginosa. 2. Chronic debility. 3. Anemia. 4. Mild thrombocytopenia. 5. Traumatic brain injury. 6. Possibility of other suspected protein calorie malnutrition status as well. PLAN OF TREATMENT: The patient would be continued on intravenous antibiotic with current sensitivity results. Discontinuation of the vancomycin because of lack of any organisms isolation. The patient has been currently considered possible blood transfusion, ordered by the primary care attending. Thrombocytopenia seemed to be better partially from yesterday. Monitor chest x-ray as necessary. Other supportive therapy, plan of management. Order the [place], [place] PROGRESS NOTE NAME: CHRISTINE NÚÑEZ UNIT #: [id number] ROOM: [facility] DOCTOR: RASHMI MAC MD,ROSA BIRTHDATE: [birth year] prealbumin level to assess the nutritional status. Usual care, other supportive plan of management and care. ROSA CARABALLO MD CM:SHAWN [id number] ROSA MAC MD 05/25/18 1145 interface
--- NOTE | ~2018-05-22 | PROC NOTE ---
[place], [place] PROCEDURE NOTE NAME: CHRISTINE NÚÑEZ UNIT #: [id number] ROOM: 422 DOCTOR: RASHMI MAC MD,ROSA BIRTHDATE: [birth year] DOS: 05/23/2018 PREOPERATIVE DIAGNOSIS: The patient possibly to acute aspiration pneumonia. POSTOPERATIVE DIAGNOSES: There was no evidence of aspiration noted with ongoing acute severe pneumonia. The patient is involving the right endobronchial tree. The patient's right upper, right middle, right lower lobe subsegments. PROCEDURE DESCRIPTION: Informed consent obtained from the patient and family members. The patient was brought to the OR, the patient was given conscious sedation. Conscious sedation was administered. After adequate sedation, airway introduced in the mouth. Bronchoscope was advanced to the airway into the laryngeal area. Epiglottis and vocal cords were seen. The vocal cord noted yellowish in color. The bronchoscope advanced to the vocal cord and tracheal lumen, which are noted with moderate amount of thick purulent secretion for, which was suctioned out with the help of normal saline wash. Shannan noted sharp. Copious amount of similar secretion. The patient with purulent material noted in the right main stem bronchus, right upper, right middle, right lower lobe bronchi. All the secretions suctioned out and cleared, the patient adequately was sent to the lab for culture. Small amount of secretion present in left upper, lingular lower bronchi, which was also removed and sent for cultures. Procedure was well tolerated by the patient without difficulty. Postoperative findings will be discussed with the patient's family member, and will discuss later on with patient. ROSA CARABALLO MD CM:PROCNOTE:PROCEDURE NOTE [id number] ROSA MAC MD
--- NOTE | ~2018-05-22 | EKG ---
[place], [place] ELECTROCARDIOGRAM REPORT NAME: CHRISTINE NÚÑEZ UNIT #: [id number] ROOM: 422 DOCTOR: RASHMI MAC MD,ROSA BIRTHDATE: [birth year] DOS: 05/22/2018 ELECTROCARDIOGRAM TIME: 06:43 a.m. FINDINGS: Electrocardiogram shows mild sinus tachycardia, heart rate 106 beats per minute. Questionable inferior myocardial wall infarction. ROSA CARABALLO MD CM:EKGRPT:ELECTROCARDIOGRAM REPORT [id number] [id number] ROSA MAC MD
--- NOTE | ~2018-05-22 | PR ---
[place], [place] PROGRESS NOTE NAME: CHRISTINE NÚÑEZ UNIT #: [id number] ROOM: [facility] DOCTOR: RASHMI MAC MD,ROSA BIRTHDATE: [birth year] DOS: 05/24/2018 PULMONARY PROGRESS NOTE SUBJECTIVE: The patient has a bronchoscopy done yesterday successfully without any difficulty or problem. His cough has been decreased. He has been noted awake. The patient has not been noted with any hemodynamic instability and has some progress. Feeding was continued per PEG tube at low dose. The patient was kept in the Intensive Care Unit in the last 24 hours. REVIEW OF SYSTEMS: Cannot be completed due to the patient's nonverbal status with traumatic brain injury. OBJECTIVE: VITAL SIGNS: Which have been recorded this morning showed normal temperature, respiratory rate 17-14, heart rate 75-82, blood pressure 113/75-108/64. HEENT: Head was currently atraumatic. NECK: Supple. CARDIOVASCULAR: S1, S2 is audible. LUNGS: Noted without any wheezing or crackles at the present time. Breaths are noted mildly diminished bilaterally. ABDOMEN: Soft. PEG tube in place. EXTREMITIES: Noted without any acute new changes at this time. VISIBLE SKIN: No lesions or rashes. CENTRAL NERVOUS SYSTEM: Nonverbal, traumatic brain injury. LABORATORY DATA: CBC today: Hemoglobin 8.4, hematocrit 26.8, WBC count normal, platelet count 87,000. BMP this morning: Sodium normal, creatinine normal, glucose 116. Culture of the bronchoscopy noted with moderate growth of Gram-negative bacilli and moderate growth of yeast preliminarily. Final culture results are pending. Gram stain of the bronchial washing: Many white blood cells, a few epithelial cells, a few budding yeast. Blood culture from 05/22/2018, both sets noted no bacterial growth. Final culture results are pending. IMPRESSION: 1. Acute pneumonia with mucus impaction of major airways on the right side without any gross evidence of aspiration. 2. Neurogenic dysphagia with history of traumatic brain injury as well. 3. Anemia without any active gastrointestinal bleeding. 4. Thrombocytopenia, most likely multifactorial. PLAN OF MANAGEMENT: Continuation of the bronchodilators, oxygen supplementation, and current antibiotic, broad spectrum. The antibiotic will be deescalated based on the further culture results. Monitoring thrombocytopenia. If the thrombocytopenia remains progressive, review the medication of the patient that might need to be changed; the thrombocytopenia could be resulting from those. Monitoring results of Gram-negative bacilli as well and other final culture results. Usual care, other supportive plan of management, therapy and care. Additional treatment changes will be made based on progression of the [place], [place] PROGRESS NOTE NAME: CHRISTINE NÚÑEZ UNIT #: [id number] ROOM: [facility] DOCTOR: ROSA CHAPPELL MD BIRTHDATE: [birth year] illness. ROSA CARABALLO MD CM:PNTRANS 1259 [id number] ROSA MAC MD 05/24/18 1353 interface
[2018-05-22] MEDS ORDERED: JEVITY CAL PEG (06:29)
[2018-05-22 07:17] LABS: BASO % 0.3 % (0.0-1.0); EOS # 0.1 10*3/uL (0.0-0.4); EOS % 0.6 % (1.0-4.0); HEMATOCRIT 37.1 % (42.0-52.0); LYMPH # 0.7 10*3/uL (1.3-4.4); LYMPH % 6.4 % (27.0-41.0); MEAN CELL VOLUME 99.5 fl (80.0-94.0); MEAN CORPUSCULAR HGB 32.2 pg (27.0-31.0); MEAN CORPUSCULAR HGB CONC 32.3 g/dl (33.0-37.0); MEAN PLATELET VOLUME 11.2 fl (9.6-12.3); MONO # 0.7 10*3/uL (0.1-1.0); MONO % 6.2 % (3.0-9.0); NEUT # 9.7 10*3/uL (2.3-7.9); NEUT % 85.1 % (47.0-73.0); PLATELET COUNT AUTOMATED 135 10*3/uL (130-400); RED BLOOD COUNT 3.73 10*6/uL (4.50-5.90); RED CELL DISTRI WIDTH 14.6 % (0-14.5); WHITE BLOOD COUNT 11.4 10*3/uL (4.8-10.8)
[2018-05-22 07:25] LABS: ACT PARTIAL THROMBO TIME 26.6 SECONDS (20.8-31.5); INTERNATIONAL NORM RATIO 0.9 (2.0-3.5)
[2018-05-22 07:32] LABS: CARBAMAZEPINE (TEGRETOL) TOTAL 7.6 ug/ml (4-12); VALPROIC ACID (DEPAKENE) 61.8 ug/ml (50-100)
[2018-05-22 07:33] LABS: ALBUMIN 3.1 gm/dl (3.1-4.5); ALKALINE PHOSPHATASE 52 U/L (45-117); BUN 18 mg/dl (7-24); CHLORIDE 97 mmol/L (98-107); CREATININE 1.02 mg/dL (0.70-1.30); POTASSIUM 4.3 mmol/L (3.5-5.1); SGOT/AST 28 IU/L (3-35); SGPT/ALT 26 U/L (12-78); SODIUM 135 mmol/L (136-145)
[2018-05-22 07:39] LABS: TROPONIN I < 0.015 ng/ml (<0.045)
[2018-05-22 10:47] LABS: BILIRUBIN NEGATIVE (NEGATIVE); BLOOD NEGATIVE (NEGATIVE); CLARITY SL CLOUDY (CLEAR); COLOR YELLOW (YELLOW); GLUCOSE NEGATIVE (NEGATIVE); KETONE NEGATIVE (NEGATIVE); LEUKO ESTERASE NEGATIVE (NEGATIVE); NITRITE NEGATIVE (NEGATIVE); SPECIFIC GRAVITY <= 1.005 (1.005-1.030); UROBILINOGEN 0.2 E.U./dl (0.2-1.0)
[2018-05-22 10:57] LABS: BACTERIA 2+
[2018-05-22] MEDS ORDERED: DUONEB 3 MG/3 ML3 M1 INH (13:01)
[2018-05-23] VITALS (9 sets, daily range): BP systolic 97–116; BP diastolic 59–79
[2018-05-23 05:45] LABS: BUN 20 mg/dl (7-24); CHLORIDE 107 mmol/L (98-107); CREATININE 1.13 mg/dL (0.70-1.30); PHOSPHOROUS 3.1 mg/dL (2.5-4.9); POTASSIUM 4.2 mmol/L (3.5-5.1); SODIUM 139 mmol/L (136-145)
[2018-05-23 06:01] LABS: BASO % 0.2 % (0.0-1.0); EOS # 0.1 10*3/uL (0.0-0.4); EOS % 1.3 % (1.0-4.0); LYMPH # 1.4 10*3/uL (1.3-4.4); LYMPH % 15.7 % (27.0-41.0); MEAN CELL VOLUME 101.3 fl (80.0-94.0); MEAN CORPUSCULAR HGB 31.5 pg (27.0-31.0); MEAN CORPUSCULAR HGB CONC 31.1 g/dl (33.0-37.0); MEAN PLATELET VOLUME 11.7 fl (9.6-12.3); MONO # 0.7 10*3/uL (0.1-1.0); MONO % 8.5 % (3.0-9.0); NEUT # 6.4 10*3/uL (2.3-7.9); NEUT % 73.6 % (47.0-73.0); RED BLOOD COUNT 2.98 10*6/uL (4.50-5.90); RED CELL DISTRI WIDTH 14.7 % (0-14.5); WHITE BLOOD COUNT 8.7 10*3/uL (4.8-10.8)
[2018-05-23 06:16] LABS: HEMATOCRIT 30.2 % (42.0-52.0); HEMOGLOBIN 9.4 g/dl (14.0-18.0); PLATELET COUNT AUTOMATED 94 10*3/uL (130-400)
[2018-05-23 13:00] LABS: HEMATOCRIT 28.3 % (42.0-52.0); HEMOGLOBIN 8.5 g/dl (14.0-18.0)
[2018-05-24] VITALS: BP 119/68
[2018-05-24 04:00] VITALS: BP 113/75
[2018-05-24 05:16] LABS: BUN 14 mg/dl (7-24); CHLORIDE 107 mmol/L (98-107); CREATININE 0.92 mg/dL (0.70-1.30); POTASSIUM 4.8 mmol/L (3.5-5.1); SODIUM 138 mmol/L (136-145)
[2018-05-24 06:08] LABS: BASO % 0.3 % (0.0-1.0); EOS # 0.3 10*3/uL (0.0-0.4); EOS % 3.4 % (1.0-4.0); HEMATOCRIT 26.8 % (42.0-52.0); HEMOGLOBIN 8.4 g/dl (14.0-18.0); LYMPH # 1.3 10*3/uL (1.3-4.4); LYMPH % 16.8 % (27.0-41.0); MEAN CELL VOLUME 101.1 fl (80.0-94.0); MEAN CORPUSCULAR HGB 31.7 pg (27.0-31.0); MEAN CORPUSCULAR HGB CONC 31.3 g/dl (33.0-37.0); MEAN PLATELET VOLUME 12.1 fl (9.6-12.3); MONO # 0.8 10*3/uL (0.1-1.0); MONO % 10.9 % (3.0-9.0); NEUT # 5.3 10*3/uL (2.3-7.9); PLATELET COUNT AUTOMATED 87 10*3/uL (130-400); RED BLOOD COUNT 2.65 10*6/uL (4.50-5.90); RED CELL DISTRI WIDTH 14.5 % (0-14.5); WHITE BLOOD COUNT 7.7 10*3/uL (4.8-10.8)
[2018-05-24 08:00] VITALS: BP 108/64
[2018-05-24 12:00] VITALS: BP 89/57
[2018-05-24 12:06] LABS: ACID FAST SPEC PROCESSING Concentration (.)
[2018-05-24 16:00] VITALS: BP 92/56
[2018-05-24 20:00] VITALS: BP 93/54
[2018-05-25] VITALS (8 sets, daily range): BP systolic 96–117; BP diastolic 46–79
[2018-05-25 05:43] LABS: ALBUMIN 2.2 gm/dl (3.1-4.5); ALKALINE PHOSPHATASE 26 U/L (45-117); BUN 8 mg/dl (7-24); CHLORIDE 106 mmol/L (98-107); CREATININE 0.77 mg/dL (0.70-1.30); SGOT/AST 30 IU/L (3-35); SGPT/ALT 27 U/L (12-78); SODIUM 139 mmol/L (136-145); TOTAL PROTEIN 5.3 gm/dL (6.4-8.2)
[2018-05-25 05:56] LABS: BASO % 0.4 % (0.0-1.0); EOS # 0.3 10*3/uL (0.0-0.4); EOS % 5.6 % (1.0-4.0); HEMATOCRIT 24.7 % (42.0-52.0); HEMOGLOBIN 7.8 g/dl (14.0-18.0); LYMPH % 20.2 % (27.0-41.0); MEAN CORPUSCULAR HGB 31.6 pg (27.0-31.0); MEAN CORPUSCULAR HGB CONC 31.6 g/dl (33.0-37.0); MEAN PLATELET VOLUME 11.1 fl (9.6-12.3); MONO # 0.5 10*3/uL (0.1-1.0); MONO % 10.5 % (3.0-9.0); NEUT % 62.7 % (47.0-73.0); PLATELET COUNT AUTOMATED 94 10*3/uL (130-400); RED BLOOD COUNT 2.47 10*6/uL (4.50-5.90); RED CELL DISTRI WIDTH 14.2 % (0-14.5); WHITE BLOOD COUNT 4.8 10*3/uL (4.8-10.8)
[2018-05-25 15:17] LABS: BASO % 0.3 % (0.0-1.0); EOS # 0.3 10*3/uL (0.0-0.4); EOS % 4.5 % (1.0-4.0); HEMATOCRIT 28.3 % (42.0-52.0); HEMOGLOBIN 9.4 g/dl (14.0-18.0); LYMPH # 0.8 10*3/uL (1.3-4.4); LYMPH % 12.4 % (27.0-41.0); MEAN CORPUSCULAR HGB 31.9 pg (27.0-31.0); MEAN CORPUSCULAR HGB CONC 33.2 g/dl (33.0-37.0); MEAN PLATELET VOLUME 10.5 fl (9.6-12.3); MONO # 0.5 10*3/uL (0.1-1.0); MONO % 8.6 % (3.0-9.0); NEUT # 4.6 10*3/uL (2.3-7.9); NEUT % 73.2 % (47.0-73.0); PLATELET COUNT AUTOMATED 100 10*3/uL (130-400); RED BLOOD COUNT 2.95 10*6/uL (4.50-5.90); WHITE BLOOD COUNT 6.3 10*3/uL (4.8-10.8)
[2018-05-25 15:19] LABS: MEAN CELL VOLUME 95.9 fl (80.0-94.0)
[2018-05-26] VITALS (10 sets, daily range): BP systolic 107–127; BP diastolic 60–75
[2018-05-26 06:53] LABS: ALBUMIN 2.2 gm/dl (3.1-4.5); ALKALINE PHOSPHATASE 30 U/L (45-117); BUN 4 mg/dl (7-24); CHLORIDE 114 mmol/L (98-107); CREATININE 0.83 mg/dL (0.70-1.30); POTASSIUM 4.4 mmol/L (3.5-5.1); SGOT/AST 32 IU/L (3-35); SGPT/ALT 29 U/L (12-78); SODIUM 145 mmol/L (136-145); TOTAL PROTEIN 5.7 gm/dL (6.4-8.2)
[2018-05-26 06:55] LABS: PREALBUMIN 11 mg/dl (20-40)
[2018-05-26 07:41] LABS: BASO % 0.4 % (0.0-1.0); EOS # 0.4 10*3/uL (0.0-0.4); EOS % 8.1 % (1.0-4.0); HEMATOCRIT 30.9 % (42.0-52.0); HEMOGLOBIN 10.2 g/dl (14.0-18.0); LYMPH % 19.4 % (27.0-41.0); MEAN CELL VOLUME 96.6 fl (80.0-94.0); MEAN CORPUSCULAR HGB 31.9 pg (27.0-31.0); MEAN PLATELET VOLUME 10.1 fl (9.6-12.3); MONO # 0.5 10*3/uL (0.1-1.0); MONO % 10.4 % (3.0-9.0); NEUT # 3.1 10*3/uL (2.3-7.9); NEUT % 60.1 % (47.0-73.0); PLATELET COUNT AUTOMATED 108 10*3/uL (130-400); RED CELL DISTRI WIDTH 15.9 % (0-14.5); WHITE BLOOD COUNT 5.1 10*3/uL (4.8-10.8)
[2018-05-27] VITALS: BP 120/75
[2018-05-27 04:00] VITALS: BP 125/69
[2018-05-27 05:52] LABS: HEMATOCRIT 31.9 % (42.0-52.0); HEMOGLOBIN 10.4 g/dl (14.0-18.0)
[2018-05-27 06:07] LABS: ALBUMIN 2.2 gm/dl (3.1-4.5); BUN 4 mg/dl (7-24); CHLORIDE 109 mmol/L (98-107); CREATININE 0.69 mg/dL (0.70-1.30); PHOSPHOROUS 1.9 mg/dL (2.5-4.9); POTASSIUM 3.6 mmol/L (3.5-5.1); SODIUM 142 mmol/L (136-145)
[2018-05-27 07:28] VITALS: BP 129/73
[2018-05-27 12:00] VITALS: BP 120/86
[2018-05-27 16:00] VITALS: BP 131/76
[2018-05-27 20:00] VITALS: BP 138/65
[2018-05-28] VITALS: BP 126/83
[2018-05-28 07:09] LABS: HEMOGLOBIN 10.4 g/dl (14.0-18.0); MEAN CELL VOLUME 96.1 fl (80.0-94.0); MEAN CORPUSCULAR HGB 31.2 pg (27.0-31.0); MEAN CORPUSCULAR HGB CONC 32.5 g/dl (33.0-37.0); MEAN PLATELET VOLUME 10.1 fl (9.6-12.3); PLATELET COUNT AUTOMATED 131 10*3/uL (130-400); RED BLOOD COUNT 3.33 10*6/uL (4.50-5.90); RED CELL DISTRI WIDTH 15.6 % (0-14.5); WHITE BLOOD COUNT 5.2 10*3/uL (4.8-10.8)
[2018-05-28 07:30] LABS: PLATELET SUFFICIENCY NORMAL (NORMAL); TOTAL CELLS COUNTED 100 #CELLS
[2018-05-28 07:42] LABS: BUN 5 mg/dl (7-24); CHLORIDE 110 mmol/L (98-107); CREATININE 0.67 mg/dL (0.70-1.30); POTASSIUM 3.9 mmol/L (3.5-5.1); SODIUM 144 mmol/L (136-145)
[2018-05-28 08:29] VITALS: BP 124/82; BP 92/51
[2018-05-28 12:00] VITALS: BP 129/79
[2018-05-28 15:50] VITALS: BP 128/82
[2018-07-06 12:05] LABS: ACID FAST CULTURE Negative (.)
== END 2018-05-28 18:45 | disposition other institution (70) | DRG 871 ==
LOC: ED 06:13 → EDHOLD 10:58 → ICCU 10:58 → 4E 05-27 13:47
PROVIDERS: Internal Medicine; Internal Medicine Critical Care Medicine; Internal Medicine Gastroenterology; Student in an Organized Health Care Education/Training Program
PROC: 0W3P8ZZ Control Bleeding in Gastrointestinal Tract, Via Natural or Artificial Opening Endoscopic (ICD-10-PCS; principal; 2018-05-22)
PROC: 0BC38ZZ Extirpation of Matter from Right Main Bronchus, Via Natural or Artificial Opening Endoscopic (ICD-10-PCS; 2018-05-23)
PROC: 0BCB8ZZ Extirpation of Matter from Left Lower Lobe Bronchus, Via Natural or Artificial Opening Endoscopic (ICD-10-PCS; 2018-05-23)
PROC: 0BC58ZZ Extirpation of Matter from Right Middle Lobe Bronchus, Via Natural or Artificial Opening Endoscopic (ICD-10-PCS; 2018-05-23)
PROC: 0BC98ZZ Extirpation of Matter from Lingula Bronchus, Via Natural or Artificial Opening Endoscopic (ICD-10-PCS; 2018-05-23)
PROC: 0BC48ZZ Extirpation of Matter from Right Upper Lobe Bronchus, Via Natural or Artificial Opening Endoscopic (ICD-10-PCS; 2018-05-23)
PROC: 0BC68ZZ Extirpation of Matter from Right Lower Lobe Bronchus, Via Natural or Artificial Opening Endoscopic (ICD-10-PCS; 2018-05-23)
PROC: 0BC18ZZ Extirpation of Matter from Trachea, Via Natural or Artificial Opening Endoscopic (ICD-10-PCS; 2018-05-23)
PROC: 0BC88ZZ Extirpation of Matter from Left Upper Lobe Bronchus, Via Natural or Artificial Opening Endoscopic (ICD-10-PCS; 2018-05-23)
PROC: 0BC78ZZ Extirpation of Matter from Left Main Bronchus, Via Natural or Artificial Opening Endoscopic (ICD-10-PCS; 2018-05-23)
PROC: 30233N1 Transfusion of Nonautologous Red Blood Cells into Peripheral Vein, Percutaneous Approach (ICD-10-PCS; 2018-05-25)
PROC: 0DJ08ZZ Inspection of Upper Intestinal Tract, Via Natural or Artificial Opening Endoscopic (ICD-10-PCS; 2018-05-26)
DX: A41.9 Sepsis, unspecified organism (principal); J96.01 Acute respiratory failure with hypoxia; J69.0 Pneumonitis due to inhalation of food and vomit; E43 Unspecified severe protein-calorie malnutrition; K31.82 Dieulafoy lesion (hemorrhagic) of stomach and duodenum; G91.9 Hydrocephalus, unspecified; D69.6 Thrombocytopenia, unspecified; K56.7 Ileus, unspecified; E87.1 Hypo-osmolality and hyponatremia; R47.01 Aphasia; K92.2 Gastrointestinal hemorrhage, unspecified; E87.8 Other disorders of electrolyte and fluid balance, not elsewhere classified; G20 Parkinson's disease; L30.4 Erythema intertrigo; F03.90 Unspecified dementia, unspecified severity, without behavioral disturbance, psychotic disturbance, mood disturbance, and anxiety; E55.9 Vitamin D deficiency, unspecified; F32.9 Major depressive disorder, single episode, unspecified; J30.2 Other seasonal allergic rhinitis; F41.1 Generalized anxiety disorder; R65.20 Severe sepsis without septic shock; D53.9 Nutritional anemia, unspecified; R13.19 Other dysphagia; F51.01 Primary insomnia; G40.909 Epilepsy, unspecified, not intractable, without status epilepticus; E78.5 Hyperlipidemia, unspecified; R13.12 Dysphagia, oropharyngeal phase; Z74.01 Bed confinement status; Z87.440 Personal history of urinary (tract) infections; Z87.01 Personal history of pneumonia (recurrent); Z79.899 Other long term (current) drug therapy; Z83.6 Family history of other diseases of the respiratory system; Z98.2 Presence of cerebrospinal fluid drainage device; Z68.28 Body mass index [BMI] 28.0-28.9, adult

== ENCOUNTER 2018-06-05 18:37 | Inpatient (IN) | payer MEDICARE ==
[~2018-06-05] VITALS: Ht 170.2 cm; Wt 88.1 kg
--- NOTE | ~2018-06-05 | CON ---
[place], [place] REPORT OF CONSULTATION NAME: CHRISTINE NÚÑEZ UNIT #: [id number] ROOM: 512 DOCTOR: ZENA LIM MD BIRTHDATE: [birth year] DOS: 06/06/2018 PSYCHIATRIC CONSULT CHIEF COMPLAINT: The patient was somnolent and unable to be aroused. HISTORY OF PRESENT ILLNESS: This is a 62-year-old white male known to me from his previous stay at the [facility]. The patient was admitted due to pulling out his PEG tube, this was placed approximately 4 weeks ago. The patient's family states that he does seem to be more agitated and restless since his Ativan dose was cut back while at the long-term care facility. The notes indicate he has continued to be somewhat restless. The patient has a significant history of a TBI with resultant dementia and has a history of both being verbally loud and disruptive as well as at times physically aggressive. PAST MEDICAL HISTORY: Remarkable for aphasia, dementia, depression, failure to thrive, GI bleed, hydrocephalus, anemia, Parkinson's disease, seizure disorder, vitamin D deficiency. SOCIAL HISTORY: He does not drink, use drugs, or smoke cigarettes. MENTAL STATUS: Limited due to his overall level of somnolence. 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 PLAN: I will go ahead and order Ativan 0.5 mg t.i.d. per the PEG tube straight given the fact that his agitation was such that he did pull out the PEG tube. Should this cause some excess sedation, we can cut down the straight order. He does have a p.r.n. order every 6 hours that can be utilized as well. If this is not effective, I would err on the side of being somewhat cautious and slow as far as titrating his dose of the benzodiazepine once he is medically stable. I will follow him upon his return to the [facility]. ZENA LIM MD CM:CONSTR:REPORT OF CONSULTATION 1049 06/07/18 0020 interface
--- NOTE | ~2018-06-05 | CON ---
[place], [place] REPORT OF CONSULTATION NAME: CHRISTINE NÚÑEZ UNIT #: [id number] ROOM: 512 DOCTOR: QUINTON PAZRILEY BIRTHDATE: [birth year] DOS: 06/07/2018 GASTROINTESTINAL CONSULTATION HISTORY OF PRESENT ILLNESS: The patient with advanced mental retardation from alf, has accidentally pulled his own gastrostomy tube out and he is dependent for feeding and medication on the device and I was called midnight and we decided to keep him n.p.o. until arrangement is made for G-tube replacement with a mix substitute. Meanwhile, we kept the Morton catheter and ostomy to keep it patent and overnight and not to collapse. PAST MEDICAL HISTORY: Aphasia, dementia, hydrocephalus and Parkinson's by history. PAST SURGICAL HISTORY: Ventricular shunt and orthopedic procedures for his extremities and PEG tube placement. SOCIAL HISTORY: Nonsmoker, nonalcohol consumer, residing in a alf. FAMILY HISTORY: Noncontributory. MEDICATION: List has been reviewed. ALLERGIES: HAS BEEN TO LATEX. REVIEW OF SYSTEMS: Cannot be obtained from him due to the cognitive incapability In addition to aphasia. PHYSICAL EXAMINATION: HEENT: Benign with deformities associated with advanced MR and in general deformed. EXTREMITIES: Upper and lower with a partial contraction of the joints and flexion of the both. VITAL SIGNS: Otherwise, stable. NECK: Supple, no thyromegaly, no cervical lymphadenopathy. CHEST: Symmetric anatomy, equal expansion. No wheeze, no rhonchi. HEART: Normal sinus rhythm, no gallop, no murmur. ABDOMEN: Soft. No hepato-organomegaly. A Morton catheter, which has been inserted in the ostomy site was noticed. Bowel sounds present. EXTREMITIES: Deformed. NEUROLOGIC: Alert and noncognitive. IMPRESSION: Malfunctioning PEG tube, which has been removed by the patient accidentally and replacement catheter has been kept in ostomy for preventing collapse of ostomy. At this stage, anterior abdominal wall, aseptically was prepped and existing catheter from the ostomy was removed with balloon of the catheter, mild dilation was undertaken and G-tube MONICA brand size 18 was deployed into the existing ostomy and inflated with 15 mL of normal saline and anchors from outside addition really tightened strap was added. The patient tolerated the procedure well. [place], [place] REPORT OF CONSULTATION NAME: CHRISTINE NÚÑEZ UNIT #: [id number] ROOM: 512 DOCTOR: QUINTON PAZ,RILEY BIRTHDATE: [birth year] IMPRESSION: Malfunctioning PEG tube status post removal, status post replacement of the G-tube. PLAN AND DISCUSSION: The patient aphasic neurogenic dysphagia, status post previous PEG. OTHER ADJUNCTIVE DIAGNOSES: As has been already dictated in past medical and surgical history. PLAN AND DISCUSSION: We will resume utilization for medications and feeding from [facility]. RILEY ALCANTARA MD CM:CONSTR:REPORT OF CONSULTATION 1738 06/08/18 0538 interface
[~2018-06-05 18:37] MED LIST changes: +JEVITY CAL PEG
[2018-06-05 18:42] VITALS: BP 106/69
[2018-06-05 20:45] VITALS: BP 136/74
[2018-06-05 20:57] LABS: BASO % 0.4 % (0.0-1.0); EOS # 0.2 10*3/uL (0.0-0.4); EOS % 3.3 % (1.0-4.0); HEMATOCRIT 32.5 % (42.0-52.0); HEMOGLOBIN 10.3 g/dl (14.0-18.0); LYMPH # 1.3 10*3/uL (1.3-4.4); LYMPH % 18.7 % (27.0-41.0); MEAN CELL VOLUME 97.9 fl (80.0-94.0); MEAN CORPUSCULAR HGB CONC 31.7 g/dl (33.0-37.0); MEAN PLATELET VOLUME 9.4 fl (9.6-12.3); MONO # 0.6 10*3/uL (0.1-1.0); MONO % 8.3 % (3.0-9.0); NEUT # 4.6 10*3/uL (2.3-7.9); NEUT % 67.4 % (47.0-73.0); PLATELET COUNT AUTOMATED 213 10*3/uL (130-400); RED BLOOD COUNT 3.32 10*6/uL (4.50-5.90); RED CELL DISTRI WIDTH 15.2 % (0-14.5); WHITE BLOOD COUNT 6.8 10*3/uL (4.8-10.8)
[2018-06-05 21:00] VITALS: BP 136/74
[2018-06-05 21:11] LABS: ALBUMIN 2.9 gm/dl (3.1-4.5); BUN 14 mg/dl (7-24); CHLORIDE 103 mmol/L (98-107); CREATININE 0.73 mg/dL (0.70-1.30); PHOSPHOROUS 3.9 mg/dL (2.5-4.9); POTASSIUM 4.6 mmol/L (3.5-5.1); SODIUM 140 mmol/L (136-145)
[2018-06-05] MEDS ORDERED: PROTONIX40 M2 PEG (23:11)
[2018-06-05] MEDS ORDERED: Carafate1 GM/10 ML PEG (23:12)
[2018-06-06] VITALS: BP 108/69
[2018-06-06 06:54] LABS: ALKALINE PHOSPHATASE 52 U/L (45-117); BUN 12 mg/dl (7-24); CHLORIDE 105 mmol/L (98-107); CREATININE 0.69 mg/dL (0.70-1.30); PHOSPHOROUS 4.2 mg/dL (2.5-4.9); POTASSIUM 4.5 mmol/L (3.5-5.1); SGOT/AST 41 IU/L (3-35); SGPT/ALT 40 U/L (12-78); SODIUM 142 mmol/L (136-145); TOTAL PROTEIN 7.1 gm/dL (6.4-8.2)
[2018-06-06 06:57] LABS: BASO % 0.4 % (0.0-1.0); EOS # 0.3 10*3/uL (0.0-0.4); EOS % 3.9 % (1.0-4.0); HEMATOCRIT 33.5 % (42.0-52.0); HEMOGLOBIN 10.5 g/dl (14.0-18.0); LYMPH # 1.4 10*3/uL (1.3-4.4); LYMPH % 21.3 % (27.0-41.0); MEAN CELL VOLUME 98.5 fl (80.0-94.0); MEAN CORPUSCULAR HGB 30.9 pg (27.0-31.0); MEAN CORPUSCULAR HGB CONC 31.3 g/dl (33.0-37.0); MONO # 0.7 10*3/uL (0.1-1.0); MONO % 10.9 % (3.0-9.0); NEUT # 4.1 10*3/uL (2.3-7.9); NEUT % 62.2 % (47.0-73.0); PLATELET COUNT AUTOMATED 219 10*3/uL (130-400); WHITE BLOOD COUNT 6.7 10*3/uL (4.8-10.8)
[2018-06-06 08:00] VITALS: BP 106/87
[2018-06-06 12:00] VITALS: BP 112/86
[2018-06-06 16:00] VITALS: BP 139/89
[2018-06-06 20:00] VITALS: BP 97/81
[2018-06-07] VITALS (7 sets, daily range): BP systolic 100–140; BP diastolic 63–88
[2018-06-08] VITALS: BP 129/76
[2018-06-08 07:50] LABS: BASO % 0.6 % (0.0-1.0); EOS # 0.2 10*3/uL (0.0-0.4); HEMATOCRIT 35.5 % (42.0-52.0); HEMOGLOBIN 11.4 g/dl (14.0-18.0); LYMPH # 1.1 10*3/uL (1.3-4.4); LYMPH % 17.6 % (27.0-41.0); MEAN CELL VOLUME 99.2 fl (80.0-94.0); MEAN CORPUSCULAR HGB 31.8 pg (27.0-31.0); MEAN CORPUSCULAR HGB CONC 32.1 g/dl (33.0-37.0); MEAN PLATELET VOLUME 10.5 fl (9.6-12.3); MONO # 0.9 10*3/uL (0.1-1.0); NEUT % 63.8 % (47.0-73.0); PLATELET COUNT AUTOMATED 261 10*3/uL (130-400); RED BLOOD COUNT 3.58 10*6/uL (4.50-5.90); WHITE BLOOD COUNT 6.3 10*3/uL (4.8-10.8)
[2018-06-08 08:00] VITALS: BP 153/88
[2018-06-08 08:04] LABS: BUN 10 mg/dl (7-24); CHLORIDE 107 mmol/L (98-107); CREATININE 0.69 mg/dL (0.70-1.30); POTASSIUM 4.7 mmol/L (3.5-5.1); SODIUM 140 mmol/L (136-145)
[2018-06-08 12:00] VITALS: BP 113/62
[2018-06-08 16:00] VITALS: BP 142/78
[2018-06-08 20:30] VITALS: BP 133/79
[2018-06-09] VITALS: BP 119/77
[2018-06-09 06:31] LABS: BUN 10 mg/dl (7-24); CHLORIDE 107 mmol/L (98-107); CREATININE 0.76 mg/dL (0.70-1.30); POTASSIUM 4.5 mmol/L (3.5-5.1); SODIUM 142 mmol/L (136-145)
[2018-06-09 08:00] VITALS: BP 131/82
[2018-06-09 12:00] VITALS: BP 124/70
[2018-06-09] MEDS ORDERED: ATIVAN0.5 MG PEG (14:42)
[2018-06-09 16:00] VITALS: BP 114/90
== END 2018-06-09 16:54 | disposition other institution (70) | DRG 393 ==
LOC: ED 18:37 → 5E 19:18 → EDHOLD 19:18 → 5E 20:15
PROVIDERS: Internal Medicine; Student in an Organized Health Care Education/Training Program
PROC: 0D20XUZ Change Feeding Device in Upper Intestinal Tract, External Approach (ICD-10-PCS; principal; 2018-06-07)
DX: K94.23 Gastrostomy malfunction (principal); E43 Unspecified severe protein-calorie malnutrition; G91.9 Hydrocephalus, unspecified; K31.82 Dieulafoy lesion (hemorrhagic) of stomach and duodenum; K91.2 Postsurgical malabsorption, not elsewhere classified; F03.91 Unspecified dementia, unspecified severity, with behavioral disturbance; R47.01 Aphasia; G20 Parkinson's disease; X58.XXXD Exposure to other specified factors, subsequent encounter; F32.9 Major depressive disorder, single episode, unspecified; R56.9 Unspecified convulsions; F41.1 Generalized anxiety disorder; G47.00 Insomnia, unspecified; J30.2 Other seasonal allergic rhinitis; Y83.3 Surgical operation with formation of external stoma as the cause of abnormal reaction of the patient, or of later complication, without mention of misadventure at the time of the procedure; Y82.8 Other medical devices associated with adverse incidents; L30.4 Erythema intertrigo; D53.9 Nutritional anemia, unspecified; R45.1 Restlessness and agitation; Z91.040 Latex allergy status; Z79.899 Other long term (current) drug therapy; Z82.5 Family history of asthma and other chronic lower respiratory diseases; S06.9X9D Unspecified intracranial injury with loss of consciousness of unspecified duration, subsequent encounter; Z79.1 Long term (current) use of non-steroidal anti-inflammatories (NSAID); Z68.28 Body mass index [BMI] 28.0-28.9, adult

== ENCOUNTER 2018-09-20 18:48 | Inpatient (IN) | payer MEDICARE ==
[~2018-09-20] VITALS: Ht 182.9 cm; Wt 84.0 kg
--- NOTE | ~2018-09-20 | EKG ---
[place], [place] ELECTROCARDIOGRAM REPORT NAME: CHRISTINE NÚÑEZ UNIT #: [id number] ROOM: 520 DOCTOR: JAZMIN DRAFT REPORT BIRTHDATE: [birth year] [facility] Test Date: 2018-09-20 Test Time: 19:18:22 Pat Name: CHRISTINE NÚÑEZ Department: Room: 520 Gender: M Electronic Wirer: TOR : 1955 Requested By: DYLON LR PA-C Order Number: [id number] Reading MD: Keagan Wang MD Measurements Intervals [place] Rate: 125 P: 49 [place]: 154 QRS: -60 QRSD: 77 T: 56 QT: 295 QTc: 426 Interpretive Statements Sinus tachycardia Inferior infarct, old Electronically Signed On 09-22-2018 12:09:41 PDT by Keagan Wang MD CM:EKGRPT:ELECTROCARDIOGRAM REPORT 17 1209 DYLON LR PA-C EPIPHANY DRAFT REPORT DYLON LR PA-C
[~2018-09-20 18:48] MED LIST changes: +ATIVAN2 MG/1 ML PEG; +Carafate1 GM/10 ML PEG; +PROTONIX40 M2 PEG
[2018-09-20 18:57] VITALS: BP 100/40
[2018-09-20] MEDS ORDERED: NYSTATIN CREAM15 GM T (19:02)
[2018-09-20 19:26] LABS: HEMATOCRIT 38.1 % (42.0-52.0); HEMOGLOBIN 12.8 g/dl (14.0-18.0); MEAN CELL VOLUME 94.3 fl (80.0-94.0); MEAN CORPUSCULAR HGB 31.7 pg (27.0-31.0); MEAN CORPUSCULAR HGB CONC 33.6 g/dl (33.0-37.0); MEAN PLATELET VOLUME 10.5 fl (9.6-12.3); PLATELET COUNT AUTOMATED 162 10*3/uL (130-400); RED BLOOD COUNT 4.04 10*6/uL (4.50-5.90); WHITE BLOOD COUNT 17.6 10*3/uL (4.8-10.8)
[2018-09-20 19:36] LABS: ACT PARTIAL THROMBO TIME 28.9 SECONDS (20.8-31.5)
[2018-09-20 19:43] LABS: ALBUMIN 2.9 gm/dl (3.1-4.5); ALKALINE PHOSPHATASE 49 U/L (45-117); BUN 16 mg/dl (7-24); CHLORIDE 101 mmol/L (98-107); CREATININE 0.73 mg/dL (0.70-1.30); POTASSIUM 3.9 mmol/L (3.5-5.1); SGOT/AST 38 IU/L (3-35); SGPT/ALT 62 U/L (12-78); SODIUM 134 mmol/L (136-145); TOTAL PROTEIN 7.4 gm/dL (6.4-8.2)
[2018-09-20 19:46] LABS: PLATELET SUFFICIENCY NORMAL (NORMAL); POLYCHROMASIA SLIGHT; STOMATOCYTE FEW; TOTAL CELLS COUNTED 100 #CELLS
[2018-09-20 19:53] LABS: TROPONIN I < 0.015 ng/ml (<0.045)
[2018-09-20 21:00] VITALS: BP 116/80
[2018-09-20 21:05] VITALS: BP 115/80
[2018-09-21] VITALS: BP 110/70
[2018-09-21] MEDS ORDERED: ATIVAN1 MG PO (00:01)
[2018-09-21 08:00] VITALS: BP 128/70
[2018-09-21 08:04] LABS: HEMATOCRIT 37.7 % (42.0-52.0); HEMOGLOBIN 12.1 g/dl (14.0-18.0); MEAN CORPUSCULAR HGB 31.4 pg (27.0-31.0); MEAN CORPUSCULAR HGB CONC 32.1 g/dl (33.0-37.0); MEAN PLATELET VOLUME 10.7 fl (9.6-12.3); PLATELET COUNT AUTOMATED 120 10*3/uL (130-400); RED BLOOD COUNT 3.85 10*6/uL (4.50-5.90); RED CELL DISTRI WIDTH 13.2 % (0-14.5); WHITE BLOOD COUNT 17.1 10*3/uL (4.8-10.8)
[2018-09-21 08:17] LABS: MEAN CELL VOLUME 97.9 fl (80.0-94.0)
[2018-09-21 08:20] LABS: ATYPICAL LYMPHS 1 % (0-0); PLATELET SUFFICIENCY LOW (NORMAL); TOTAL CELLS COUNTED 100 #CELLS
[2018-09-21 08:33] LABS: ALBUMIN 2.7 gm/dl (3.1-4.5); ALKALINE PHOSPHATASE 48 U/L (45-117); BUN 15 mg/dl (7-24); CHLORIDE 103 mmol/L (98-107); CREATININE 0.83 mg/dL (0.70-1.30); FREE T4 0.67 ng/dl (0.76-1.46); PHOSPHOROUS 2.9 mg/dL (2.5-4.9); POTASSIUM 4.4 mmol/L (3.5-5.1); SGOT/AST 46 IU/L (3-35); SGPT/ALT 54 U/L (12-78); SODIUM 136 mmol/L (136-145); TOTAL PROTEIN 6.4 gm/dL (6.4-8.2)
[2018-09-21 12:00] VITALS: BP 118/70
[2018-09-21 15:36] LABS: BILIRUBIN NEGATIVE (NEGATIVE); BLOOD TRACE-INTACT (NEGATIVE); CLARITY SL CLOUDY (CLEAR); COLOR YELLOW (YELLOW); GLUCOSE NEGATIVE (NEGATIVE); KETONE NEGATIVE (NEGATIVE); LEUKO ESTERASE TRACE (NEGATIVE); NITRITE NEGATIVE (NEGATIVE); UROBILINOGEN 0.2 E.U./dl (0.2-1.0)
[2018-09-21 16:00] VITALS: BP 116/59
[2018-09-21 16:09] LABS: BACTERIA 1+; WBC TNTC wbc/hpf (0-5)
[2018-09-21 20:00] VITALS: BP 102/59
[2018-09-22] VITALS: BP 119/90
[2018-09-22 12:00] VITALS: BP 113/77
[2018-09-22 16:00] VITALS: BP 118/72
[2018-09-22 20:00] VITALS: BP 105/77
[2018-09-23] VITALS: BP 133/88
[2018-09-23 06:44] LABS: BASO % 0.4 % (0.0-1.0); EOS # 0.2 10*3/uL (0.0-0.4); EOS % 3.2 % (1.0-4.0); LYMPH # 1.2 10*3/uL (1.3-4.4); LYMPH % 20.7 % (27.0-41.0); MEAN CELL VOLUME 98.4 fl (80.0-94.0); MEAN CORPUSCULAR HGB 31.7 pg (27.0-31.0); MEAN CORPUSCULAR HGB CONC 32.2 g/dl (33.0-37.0); MEAN PLATELET VOLUME 10.6 fl (9.6-12.3); MONO # 0.7 10*3/uL (0.1-1.0); MONO % 11.9 % (3.0-9.0); NEUT # 3.5 10*3/uL (2.3-7.9); NEUT % 62.7 % (47.0-73.0); PLATELET COUNT AUTOMATED 123 10*3/uL (130-400); RED BLOOD COUNT 3.12 10*6/uL (4.50-5.90); RED CELL DISTRI WIDTH 13.1 % (0-14.5); WHITE BLOOD COUNT 5.6 10*3/uL (4.8-10.8)
[2018-09-23 06:53] LABS: HEMATOCRIT 30.7 % (42.0-52.0); HEMOGLOBIN 9.9 g/dl (14.0-18.0)
[2018-09-23 07:07] LABS: ALBUMIN 2.4 gm/dl (3.1-4.5); ALKALINE PHOSPHATASE 35 U/L (45-117); BUN 16 mg/dl (7-24); CHLORIDE 107 mmol/L (98-107); CREATININE 0.54 mg/dL (0.70-1.30); PHOSPHOROUS 3.7 mg/dL (2.5-4.9); POTASSIUM 3.9 mmol/L (3.5-5.1); SGOT/AST 37 IU/L (3-35); SGPT/ALT 49 U/L (12-78); SODIUM 140 mmol/L (136-145)
[2018-09-23 08:00] VITALS: BP 114/76
[2018-09-23 12:00] VITALS: BP 136/97
[2018-09-23 16:00] VITALS: BP 144/60; BP 151/74
[2018-09-23 20:00] VITALS: BP 128/93
[2018-09-24] VITALS: BP 149/108
[2018-09-24 00:47] VITALS: BP 117/72
[2018-09-24 09:58] LABS: BASO % 0.3 % (0.0-1.0); EOS # 0.2 10*3/uL (0.0-0.4); EOS % 5.8 % (1.0-4.0); HEMATOCRIT 30.2 % (42.0-52.0); HEMOGLOBIN 9.9 g/dl (14.0-18.0); LYMPH # 0.8 10*3/uL (1.3-4.4); MEAN CELL VOLUME 97.1 fl (80.0-94.0); MEAN CORPUSCULAR HGB 31.8 pg (27.0-31.0); MEAN CORPUSCULAR HGB CONC 32.8 g/dl (33.0-37.0); MEAN PLATELET VOLUME 9.8 fl (9.6-12.3); MONO # 0.5 10*3/uL (0.1-1.0); MONO % 13.2 % (3.0-9.0); NEUT # 2.1 10*3/uL (2.3-7.9); NEUT % 56.3 % (47.0-73.0); PLATELET COUNT AUTOMATED 134 10*3/uL (130-400); RED BLOOD COUNT 3.11 10*6/uL (4.50-5.90); RED CELL DISTRI WIDTH 13.1 % (0-14.5); WHITE BLOOD COUNT 3.7 10*3/uL (4.8-10.8)
[2018-09-24 10:27] LABS: ALBUMIN 2.4 gm/dl (3.1-4.5); ALKALINE PHOSPHATASE 39 U/L (45-117); BUN 12 mg/dl (7-24); CHLORIDE 106 mmol/L (98-107); CREATININE 0.57 mg/dL (0.70-1.30); POTASSIUM 3.9 mmol/L (3.5-5.1); SGOT/AST 37 IU/L (3-35); SGPT/ALT 46 U/L (12-78); SODIUM 139 mmol/L (136-145); TOTAL PROTEIN 6.1 gm/dL (6.4-8.2)
[2018-09-24 12:00] VITALS: BP 129/77
[2018-09-24 13:45] LABS: CARBAMAZEPINE (TEGRETOL) TOTAL 8.7 ug/ml (4-12); VALPROIC ACID (DEPAKENE) 24.1 ug/ml (50-100)
[2018-09-24 16:00] VITALS: BP 123/79
[2018-09-24 20:00] VITALS: BP 150/84
[2018-09-25 06:41] LABS: BASO % 0.2 % (0.0-1.0); EOS # 0.2 10*3/uL (0.0-0.4); HEMATOCRIT 32.7 % (42.0-52.0); LYMPH # 1.1 10*3/uL (1.3-4.4); LYMPH % 23.5 % (27.0-41.0); MEAN CELL VOLUME 96.2 fl (80.0-94.0); MEAN CORPUSCULAR HGB 32.4 pg (27.0-31.0); MEAN CORPUSCULAR HGB CONC 33.6 g/dl (33.0-37.0); MONO # 0.6 10*3/uL (0.1-1.0); NEUT # 2.7 10*3/uL (2.3-7.9); NEUT % 57.8 % (47.0-73.0); PLATELET COUNT AUTOMATED 151 10*3/uL (130-400); RED CELL DISTRI WIDTH 12.9 % (0-14.5); WHITE BLOOD COUNT 4.6 10*3/uL (4.8-10.8)
[2018-09-25 08:00] VITALS: BP 123/82
[2018-09-25] MEDS ORDERED: LOPRESSOR25 MG PEG (11:34)
[2018-09-25] MEDS ORDERED: AMINOPHYLLIN200 MG PO (11:35)
== END 2018-09-25 12:15 | DRG 871 ==
LOC: ED 18:48 → EDHOLD 20:10 → 5E 20:10
PROVIDERS: Family Medicine; Internal Medicine; Physician Assistant; Registered Nurse; Student in an Organized Health Care Education/Training Program
DX: A41.9 Sepsis, unspecified organism (principal); J96.01 Acute respiratory failure with hypoxia; E87.1 Hypo-osmolality and hyponatremia; E44.0 Moderate protein-calorie malnutrition; N39.0 Urinary tract infection, site not specified; D72.810 Lymphocytopenia; D53.9 Nutritional anemia, unspecified; D72.9 Disorder of white blood cells, unspecified; R73.9 Hyperglycemia, unspecified; R74.0 Nonspecific elevation of levels of transaminase and lactic acid dehydrogenase [LDH]; B96.20 Unspecified Escherichia coli [E. coli] as the cause of diseases classified elsewhere; G20 Parkinson's disease; F02.80 Dementia in other diseases classified elsewhere, unspecified severity, without behavioral disturbance, psychotic disturbance, mood disturbance, and anxiety; R56.9 Unspecified convulsions; F32.9 Major depressive disorder, single episode, unspecified; E55.9 Vitamin D deficiency, unspecified; F41.1 Generalized anxiety disorder; G47.00 Insomnia, unspecified; E66.3 Overweight; R65.20 Severe sepsis without septic shock; Z87.01 Personal history of pneumonia (recurrent); Z93.1 Gastrostomy status; Z91.040 Latex allergy status; Z82.5 Family history of asthma and other chronic lower respiratory diseases; Z79.899 Other long term (current) drug therapy; Z87.820 Personal history of traumatic brain injury; Z68.25 Body mass index [BMI] 25.0-25.9, adult

== ENCOUNTER 2018-10-17 11:01 | Inpatient (IN) | payer MEDICARE ==
[~2018-10-17] VITALS: Ht 188 cm; Wt 100.2 kg
[2018-10-17] VITALS (7 sets, daily range): BP systolic 70–110; BP diastolic 56–71
--- NOTE | ~2018-10-17 | CON ---
[place], [place] REPORT OF CONSULTATION NAME: CHRISTINE NÚÑEZ UNIT #: [id number] ROOM: 526 DOCTOR: RILEY ALCANTARA MD BIRTHDATE: [birth year] DOS: 10/18/2018 GASTROENDOSCOPIC CONSULTATION REPORT HISTORY OF PRESENT ILLNESS: A 63-year-old patient who presented with a PEG tube that has been dislodged and accidentally he has pulled it out and a Morton catheter has been substituted and suspected cellulitis around the PEG site that the family has been concerned about secretions as well. He had a panel of blood work done, white blood cell was 15, H and H of 11 and 35 with platelets of 109. CBC differential was reassessed. Same pattern was seen. He has been placed on Zosyn and vancomycin. His serum ammonia level was within normal limit. Comprehensive metabolic panel, electrolytes balanced. Liver function test, GOT 40, GPT of 57. BNP 567. Troponin within normal limit. Lactic acid normal. Chest x-ray was normal. CT scan of the abdomen and pelvis was done, no acute abnormalities are identified. There is no suggestion of cellulitis. White blood cell gradually responded. Electrolytes remained normal. PAST MEDICAL HISTORY: Associated with aphasia, traumatic brain injury, Parkinson's, seizures, depression, essentially fully nursing care dependent, history of previous GI bleed with Dieulafoy's gastric bleed. PAST SURGICAL HISTORY: Legs, eyes, back, ventricular shunt and PEG tube. SOCIAL HISTORY: Past smoker. Nonalcohol consumer. FAMILY HISTORY: Noncontributory. ALLERGIES: LATEX. MEDICATIONS: List has been reviewed and among which is pantoprazole and Xifaxan. He is on lactulose as well. REVIEW OF SYSTEMS: GENERAL: Cannot be obtained from him. PHYSICAL EXAMINATION: VITAL SIGNS: Stable. GENERAL: Bedridden, aphasic, ataxic. HEENT: The patient with expected posttraumatic mouth extensive dental capping. NECK: Rather stiff. LUNGS: No wheeze, no rhonchi. HEART: Normal sinus rhythm, no gallop, no murmur. ABDOMEN: Soft. No hepato-organomegaly. There is a Morton catheter inserted in the ostomy of the PEG. EXTREMITIES: Difficulty with ambulation and ataxia and spastic. NEUROLOGIC: Alert and orientation in question. At this stage, the existing Morton substitute in the ostomy was percutaneously removed. The site was sterilized with Betadine and a MONICA gastrostomy tube size 18 was introduced into the existing ostomy inflated with 15 mL of saline, [place], [place] REPORT OF CONSULTATION NAME: CHRISTINE NÚÑEZ UNIT #: [id number] ROOM: 526 DOCTOR: QUINTON PAZ,RILEY BIRTHDATE: [birth year] anchors from outside secured, additional straps were added, patency checked and the patient tolerated procedure well. The patient is going to have a new abdominal binder ordered, size medium large to accommodate his abdominal size. OTHER ADJUNCTIVE DIAGNOSES: As outlined above. FINAL DIAGNOSES: Neurogenic dysphagia, aphasia, PEG tube dependent and PEG can be now used for feeding and medication at this moment. RILEY ALCANTARA MD CM:CONSTR:REPORT OF CONSULTATION 1808 10/27/18 1641 interface
--- NOTE | ~2018-10-17 | EKG ---
[place], [place] ELECTROCARDIOGRAM REPORT NAME: CHRISTINE NÚÑEZ UNIT #: [id number] ROOM: 502 DOCTOR: JAZMIN DRAFT REPORT BIRTHDATE: [birth year] [facility] Test Date: 2018-10-17 Test Time: 14:23:08 Pat Name: CHRISTINE NÚÑEZ Department: Room: [facility] Gender: M Waiter/Waitress First Class: SS RESP : 1955 Requested By: SANTANA MURRELL Order Number: [id number] Reading MD: Narendra Randolph MD Measurements Intervals [place] Rate: 90 P: 58 [place]: 151 QRS: -31 QRSD: 85 T: 67 QT: 331 QTc: 405 Interpretive Statements Sinus rhythm Left axis deviation Low voltage, extremity leads Compared to ECG 09/20/2018 19:18:22 Left-axis deviation now present Low QRS voltage now present Sinus tachycardia no longer present Myocardial infarct finding no longer present Electronically Signed On 10-17-2018 16:20:05 PST by Narendra Randolph MD CM:EKGRPT:ELECTROCARDIOGRAM REPORT 1423 1620 SANTANA KOROMA DRAFT REPORT SANTANA MURRELL DO
[~2018-10-17 11:01] MED LIST changes: +AMINOPHYLLIN200 MG PO; +LOPRESSOR25 MG PEG; +NYSTATIN CREAM15 GM T
[2018-10-17 14:28] LABS: BASO % 0.1 % (0.0-1.0); EOS # 0.1 10*3/uL (0.0-0.4); EOS % 0.4 % (1.0-4.0); HEMATOCRIT 35.5 % (42.0-52.0); HEMOGLOBIN 12.1 g/dl (14.0-18.0); LYMPH # 1.7 10*3/uL (1.3-4.4); LYMPH % 10.6 % (27.0-41.0); MEAN CELL VOLUME 95.9 fl (80.0-94.0); MEAN CORPUSCULAR HGB 32.7 pg (27.0-31.0); MEAN CORPUSCULAR HGB CONC 34.1 g/dl (33.0-37.0); MEAN PLATELET VOLUME 10.9 fl (9.6-12.3); MONO # 1.5 10*3/uL (0.1-1.0); MONO % 9.3 % (3.0-9.0); NEUT # 12.7 10*3/uL (2.3-7.9); NEUT % 78.6 % (47.0-73.0); PLATELET COUNT AUTOMATED 103 10*3/uL (130-400); WHITE BLOOD COUNT 16.2 10*3/uL (4.8-10.8)
[2018-10-17 14:40] LABS: ACT PARTIAL THROMBO TIME 28.3 SECONDS (20.8-31.5)
[2018-10-17 14:44] LABS: ALBUMIN 2.7 gm/dl (3.1-4.5); ALKALINE PHOSPHATASE 42 U/L (45-117); BUN 17 mg/dl (7-24); CHLORIDE 100 mmol/L (98-107); CREATININE 0.66 mg/dL (0.70-1.30); LIPASE 202 U/L (73-393); POTASSIUM 4.2 mmol/L (3.5-5.1); SGOT/AST 40 IU/L (3-35); SGPT/ALT 57 U/L (12-78); SODIUM 133 mmol/L (136-145); TOTAL PROTEIN 6.6 gm/dL (6.4-8.2)
[2018-10-17 14:46] LABS: TROPONIN I < 0.015 ng/ml (<0.045)
[2018-10-17 14:53] LABS: VALPROIC ACID (DEPAKENE) 47.8 ug/ml (50-100)
[2018-10-17] MEDS ORDERED: NYSTOP60 GM T (18:14)
[2018-10-18] VITALS: BP 125/89
[2018-10-18 07:49] LABS: BASO % 0.2 % (0.0-1.0); EOS # 0.1 10*3/uL (0.0-0.4); EOS % 0.5 % (1.0-4.0); HEMATOCRIT 37.8 % (42.0-52.0); HEMOGLOBIN 12.4 g/dl (14.0-18.0); LYMPH # 1.2 10*3/uL (1.3-4.4); LYMPH % 9.2 % (27.0-41.0); MEAN CELL VOLUME 98.7 fl (80.0-94.0); MEAN CORPUSCULAR HGB 32.4 pg (27.0-31.0); MEAN CORPUSCULAR HGB CONC 32.8 g/dl (33.0-37.0); MEAN PLATELET VOLUME 11.1 fl (9.6-12.3); MONO % 7.8 % (3.0-9.0); NEUT # 10.7 10*3/uL (2.3-7.9); NEUT % 81.7 % (47.0-73.0); PLATELET COUNT AUTOMATED 93 10*3/uL (130-400); RED BLOOD COUNT 3.83 10*6/uL (4.50-5.90); RED CELL DISTRI WIDTH 13.8 % (0-14.5); WHITE BLOOD COUNT 13.1 10*3/uL (4.8-10.8)
[2018-10-18 08:00] VITALS: BP 131/42
[2018-10-18 08:04] LABS: ALBUMIN 2.8 gm/dl (3.1-4.5); ALKALINE PHOSPHATASE 45 U/L (45-117); BUN 13 mg/dl (7-24); CHLORIDE 102 mmol/L (98-107); CHOLESTEROL 112 mg/dL (<200); CREATININE 0.72 mg/dL (0.70-1.30); HDL CHOLESTEROL 41 mg/dl (40-60); LDL CHOLESTEROL 56 mg/dL (9-159); POTASSIUM 4.2 mmol/L (3.5-5.1); SGOT/AST 46 IU/L (3-35); SGPT/ALT 62 U/L (12-78); SODIUM 134 mmol/L (136-145); TOTAL PROTEIN 7.2 gm/dL (6.4-8.2); TRIGLYCERIDES 74 mg/dl (<150); VLDL CHOLESTEROL 15 mg/dL (6-40)
[2018-10-18 09:38] LABS: VITAMIN D, 25-HYDROXY 42.1 ng/mL (30-100)
[2018-10-18 16:00] VITALS: BP 136/90
[2018-10-18 20:00] VITALS: BP 115/77
[2018-10-19 06:27] LABS: BASO % 0.2 % (0.0-1.0); EOS # 0.2 10*3/uL (0.0-0.4); EOS % 3.7 % (1.0-4.0); HEMATOCRIT 34.1 % (42.0-52.0); HEMOGLOBIN 10.9 g/dl (14.0-18.0); LYMPH # 1.2 10*3/uL (1.3-4.4); LYMPH % 19.5 % (27.0-41.0); MEAN CELL VOLUME 98.6 fl (80.0-94.0); MEAN CORPUSCULAR HGB 31.5 pg (27.0-31.0); MONO # 0.6 10*3/uL (0.1-1.0); MONO % 10.2 % (3.0-9.0); NEUT % 65.6 % (47.0-73.0); PLATELET COUNT AUTOMATED 104 10*3/uL (130-400); RED BLOOD COUNT 3.46 10*6/uL (4.50-5.90); RED CELL DISTRI WIDTH 13.6 % (0-14.5); WHITE BLOOD COUNT 6.2 10*3/uL (4.8-10.8)
[2018-10-19 08:00] VITALS: BP 124/66
[2018-10-19 12:00] VITALS: BP 130/68
[2018-10-19 16:00] VITALS: BP 146/69
[2018-10-19 20:00] VITALS: BP 132/67
[2018-10-20] VITALS: BP 97/73
[2018-10-20 00:55] VITALS: BP 164/71
[2018-10-20 06:34] LABS: BASO % 0.5 % (0.0-1.0); EOS # 0.3 10*3/uL (0.0-0.4); HEMATOCRIT 32.9 % (42.0-52.0); HEMOGLOBIN 10.8 g/dl (14.0-18.0); LYMPH # 1.1 10*3/uL (1.3-4.4); LYMPH % 25.2 % (27.0-41.0); MEAN CELL VOLUME 96.5 fl (80.0-94.0); MEAN CORPUSCULAR HGB 31.7 pg (27.0-31.0); MEAN CORPUSCULAR HGB CONC 32.8 g/dl (33.0-37.0); MEAN PLATELET VOLUME 10.1 fl (9.6-12.3); MONO # 0.6 10*3/uL (0.1-1.0); MONO % 14.4 % (3.0-9.0); NEUT # 2.2 10*3/uL (2.3-7.9); NEUT % 53.2 % (47.0-73.0); RED BLOOD COUNT 3.41 10*6/uL (4.50-5.90); RED CELL DISTRI WIDTH 13.3 % (0-14.5); WHITE BLOOD COUNT 4.2 10*3/uL (4.8-10.8)
[2018-10-20 06:42] LABS: PLATELET COUNT AUTOMATED 140 10*3/uL (130-400)
[2018-10-20 06:48] LABS: BUN 10 mg/dl (7-24); CHLORIDE 108 mmol/L (98-107); CREATININE 0.67 mg/dL (0.70-1.30); POTASSIUM 3.9 mmol/L (3.5-5.1); SODIUM 141 mmol/L (136-145)
[2018-10-20 08:00] VITALS: BP 129/80
[2018-10-20] MEDS ORDERED: ATIVAN1 MG PO (11:41)
[2018-10-20] MEDS ORDERED: VIBRAMYCIN100 MG PO (11:41)
[2018-10-20 12:00] VITALS: BP 105/75
== END 2018-10-20 14:02 | DRG 393 ==
LOC: ED 11:01 → 5E 14:02 → EDHOLD 14:02 → 5E 14:29
PROVIDERS: Emergency Medicine; Internal Medicine
PROC: 0D20XUZ Change Feeding Device in Upper Intestinal Tract, External Approach (ICD-10-PCS; principal; 2018-10-18)
DX: K94.23 Gastrostomy malfunction (principal); J18.9 Pneumonia, unspecified organism; G93.41 Metabolic encephalopathy; E43 Unspecified severe protein-calorie malnutrition; L03.311 Cellulitis of abdominal wall; E87.1 Hypo-osmolality and hyponatremia; R47.01 Aphasia; F41.1 Generalized anxiety disorder; G47.00 Insomnia, unspecified; I95.9 Hypotension, unspecified; J40 Bronchitis, not specified as acute or chronic; R56.9 Unspecified convulsions; F32.9 Major depressive disorder, single episode, unspecified; E55.9 Vitamin D deficiency, unspecified; R62.7 Adult failure to thrive; D53.9 Nutritional anemia, unspecified; K59.00 Constipation, unspecified; G20 Parkinson's disease; F02.80 Dementia in other diseases classified elsewhere, unspecified severity, without behavioral disturbance, psychotic disturbance, mood disturbance, and anxiety; I44.4 Left anterior fascicular block; Z91.040 Latex allergy status; Z87.01 Personal history of pneumonia (recurrent); Z87.820 Personal history of traumatic brain injury; Z98.2 Presence of cerebrospinal fluid drainage device; Z87.891 Personal history of nicotine dependence; Z82.5 Family history of asthma and other chronic lower respiratory diseases; Z79.899 Other long term (current) drug therapy; Z68.28 Body mass index [BMI] 28.0-28.9, adult

== ENCOUNTER 2019-01-13 21:57 | Emergency (ER) | payer MEDICARE ==
[~2019-01-13] VITALS: Ht 182.8 cm; Wt 82.6 kg
--- NOTE | ~2019-01-13 | EKG ---
[place], [place] ELECTROCARDIOGRAM REPORT NAME: CHRISTINE NÚÑEZ UNIT #: [id number] ROOM: DOCTOR: JAZMIN DRAFT REPORT BIRTHDATE: [birth year] [facility] Test Date: 2019-01-13 Test Time: 23:04:46 Pat Name: CHRISTINE NÚÑEZ Department: ED Room: Gender: Chronic Manager: Carlos Guerrero : 1955 Requested By: DAGMAR GARCIA Order Number: [id number] Reading MD: Brit Alcaraz MD Measurements Intervals [place] Rate: 69 P: 51 [place]: 178 QRS: -53 QRSD: 88 T: 70 QT: 369 QTc: 396 Interpretive Statements Sinus rhythm Left anterior fascicular block Low voltage, extremity leads Baseline wander in lead(s) V2 Compared to ECG 10/17/2018 14:23:08 Left anterior fascicular block now present Left-axis deviation no longer present Electronically Signed On 01-14-2019 4:41:17 PST by Brit Alcaraz MD CM:EKGRPT:ELECTROCARDIOGRAM REPORT [id number] DAGMAR KOROMA DRAFT REPORT DAGMAR GARCIA DO
[~2019-01-13 21:57] MED LIST changes: +NYSTOP60 GM T; +VIBRAMYCIN100 MG PO
[2019-01-13 23:11] LABS: BASO % 0.2 % (0.0-1.0); EOS # 0.1 10*3/uL (0.0-0.4); EOS % 2.9 % (1.0-4.0); HEMATOCRIT 37.8 % (42.0-52.0); HEMOGLOBIN 12.9 g/dl (14.0-18.0); LYMPH # 1.4 10*3/uL (1.3-4.4); LYMPH % 31.5 % (27.0-41.0); MEAN CELL VOLUME 95.9 fl (80.0-94.0); MEAN CORPUSCULAR HGB 32.7 pg (27.0-31.0); MEAN CORPUSCULAR HGB CONC 34.1 g/dl (33.0-37.0); MONO # 0.5 10*3/uL (0.1-1.0); MONO % 11.7 % (3.0-9.0); NEUT # 2.3 10*3/uL (2.3-7.9); NEUT % 52.1 % (47.0-73.0); PLATELET COUNT AUTOMATED 122 10*3/uL (130-400); RED BLOOD COUNT 3.94 10*6/uL (4.50-5.90); RED CELL DISTRI WIDTH 12.5 % (0-14.5); WHITE BLOOD COUNT 4.4 10*3/uL (4.8-10.8)
[2019-01-13 23:28] LABS: ALBUMIN 2.7 gm/dl (3.1-4.5); ALKALINE PHOSPHATASE 47 U/L (45-117); BUN 17 mg/dl (7-24); CHLORIDE 99 mmol/L (98-107); CREATININE 0.68 mg/dL (0.70-1.30); POTASSIUM 4.3 mmol/L (3.5-5.1); SGOT/AST 44 IU/L (3-35); SGPT/ALT 61 U/L (12-78); SODIUM 135 mmol/L (136-145); TOTAL PROTEIN 6.9 gm/dL (6.4-8.2)
[2019-01-13 23:32] LABS: TROPONIN I < 0.015 ng/ml (<0.045)
[2019-03-14] MEDS ORDERED: CLINDAMYCIN HC300 MG PEG (10:26)
[2019-03-14] MEDS ORDERED: DEPLIN-ALGAL O1 EAC1 PEG (10:27)
[2019-03-14] MEDS ORDERED: ZANTAC 150150 MG PEG (10:31)
[2019-03-14] MEDS ORDERED: DEPAKENE250 MG/5 M PEG (10:33)
[2019-03-14] MEDS ORDERED: Ipratropium Brom3 ML INH (10:36)
[2019-03-15] MEDS ORDERED: AUGMENTIN 875875 MG PEG (14:14)
== END 2019-01-14 01:53 | disposition other institution (70) ==
LOC: ED 21:57
PROVIDERS: Emergency Medicine
DX: B34.9 Viral infection, unspecified (principal); Z87.891 Personal history of nicotine dependence; Z79.899 Other long term (current) drug therapy; Z91.040 Latex allergy status